=== PATIENT | female | born 2000 | race Caucasian/White ===

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

== ENCOUNTER → 2019-01-19 09:29 | Outpatient (CLI) | payer SELFPAY ==
[2019-01-19 10:42] LABS: HCG,Quantitative 2 mIU/mL
== END ==
LOC: UTC.OUT 09:31 → LAB 09:32
PROVIDERS: Visit Provider Nurse Practitioner Family
DX: N91.2 Amenorrhea, unspecified (principal)
CPT/HCPCS: 36415; 84702

== ENCOUNTER → 2019-01-21 13:47 | Outpatient (CLI) | payer SELFPAY ==
[2019-01-21 14:34] LABS: HCG,Quantitative 1 mIU/mL
== END ==
PROVIDERS: Visit Provider Nurse Practitioner Family
DX: Z32.00 Encounter for pregnancy test, result unknown (principal)
CPT/HCPCS: 36415; 84702

== ENCOUNTER 2020-09-10 20:54 | Emergency (ER) | payer BC, SELFPAY ==
[2020-09-10 20:55] VITALS: BP 103/84; PULSE 119; RESP 16; TEMP 36.5; O2SAT 98; BMI 15.6
[2020-09-10 21:13] VITALS: BP 112/76; PULSE 104; RESP 16
--- NOTE | 2020-09-10 21:21 | PC.NURSE ---
spoke with Kalli from pharmacy and she states ok to give phengran, pepcid , reglan
[2020-09-10 21:24] LABS: Basophils % 0.2 % (0.1-2.0); Eosinophils # 0.2 K/mm3 (0.0-0.4); Eosinophils % 0.9 % (0.1-12.0); Hematocrit 43.4 % (37.0-47.0); Hemoglobin 13.9 g/dL (12.2-16.2); Lymphocytes % 5.1 % (10-50); Mean Corpuscular HGB Conc 32.1 g/dL (31.8-35.4); Mean Corpuscular Hemoglobin 28.5 pg (27.0-31.2); Mean Corpuscular Volume 88.7 fl (81-99); Mean Platelet Volume 7.5 fl (7.4-10.4); Monocytes # 0.5 K/mm3 (0.1-1.0); Monocytes % 2.6 % (1.7-9.3); Neutrophils % 91.1 % (37.0-80.0); Platelet Count 371 K/mm3 (142-424); Red Blood Count 4.89 M/mm3 (4.20-5.40); Red Cell Distribution Width 13.2 % (11.5-17.5); White Blood Count 18.6 K/mm3 (4.8-10.8)
[2020-09-10 21:29] LABS: MANUAL DIFFERENTIAL MANUAL DIFFERENTIAL (MANUAL DIFF)
[2020-09-10 22:00] VITALS: BP 114/75; PULSE 104; RESP 16
[2020-09-10 22:04] LABS: Erythrocyte Sedimentation Rate 4 mm/hr (0-20)
[2020-09-10 22:05] LABS: Lymphocytes % 7 % (10-50); Monocytes % 1 % (2-9); Neutrophils % 86 % (42-76); Platelet Estimate Normal; RBC Morphology Normal; Total Cells Counted 100
--- NOTE | 2020-09-10 22:07 | PC.NURSE ---
spoke with sabrina from pharmacy ol morphine dosage
--- NOTE | 2020-09-10 22:09 | HMH.EDPREG ---
ED Disposition Clinical Impression: Gastroenteritis due to norovirus Qualifiers: Weeks of gestation: 13 weeks Qualified Code(s): Z3A.13 - 13 weeks gestation of Disposition: Home, Self-Care Condition on Discharge: Good Instructions: DI for Acute Abdominal Pain Additional Instructions: fluids and call ob this am and use meds as needed Prescriptions: ondansetron HCL [Zofran 4mg Tab] 4 mg PO TID PRN #21 tab PRN Reason: Nausea And Vomiting Transmission Status: Pending to [facility] #[id number] Referrals: Manuel Segundo MD [Primary Care Provider] - - Critical Care Critical Care Time: No Attestation: On 09/10/20, the high probability of a clinically significant, sudden or life threatening deterioration of the following system(s) required my full and direct attention, intervention and personal management. The time I documented below is in addition to time spent performing reported procedures but includes the following listed in this critical care notation. Medical Decision Making - Medical Records Medical records reviewed: Yes: I reviewed the patient's medical records. - Byron Inquiry Pt receiving controlled substance: No Vital Signs: 09/10/20 20:55 09/10/20 21:13 09/10/20 22:00 Temperature 97.7 F Temperature Source Oral Pulse Rate 104 H 104 H Pulse Rate [Right] 119 H Respiratory Rate 16 16 16 Blood Pressure 112/76 114/75 Blood Pressure [Right Arm] 103/84 L Blood Pressure Mean [Right Arm] 90 02 Sat by Pulse Oximetry 98 09/10/20 22:30 09/10/20 23:00 Temperature Temperature Source Pulse Rate 84 89 Pulse Rate [Right] Respiratory Rate 14 16 Blood Pressure 122/70 118/69 Blood Pressure [Right Arm] Blood Pressure Mean [Right Arm] 02 Sat by Pulse Oximetry - Lab Data Lab results reviewed: Yes: I reviewed the patient's lab results. Lab Results 09/10/20 21:10: WBC 18.6 H, RBC 4.89, Hgb 13.9, Hct 43.4, MCV 88.7, MCH 28.5, MCHC 32.1, RDW 13.2, Plt Count 371, MPV 7.5, Neut % (Auto) 91.1 H, Lymph % (Auto) 5.1 L, [place] % (Auto) 2.6, Eos % (Auto) 0.9, Baso % (Auto) 0.2, Neut # (Auto) 17.0 H, Lymph # (Auto) 1.0, [place] # (Auto) 0.5, Eos # (Auto) 0.2, Baso # (Auto) 0.0, Total Counted 100, Neutrophils % (Manual) 86 H, Band Neutrophils % 6.0, Lymphocytes % (Manual) 7 L, Monocytes % (Manual) 1 L, Platelet Estimate Normal, RBC Morphology Normal, ESR 4 09/10/20 21:10: Sodium 135 L, Potassium 3.9, Chloride 104, Carbon Dioxide 19 L, Anion Gap 15.9 H, BUN 10, Creatinine 0.50 L, Estimated Creat Clear 134, Estimated GFR 154, Est GFR ( Amer) 187, Glucose 91, Calcium 9.7, Total Bilirubin 0.7, AST 34, ALT 14, Alkaline Phosphatase 65, C-Reactive Protein 1.3, Total Protein 8.3 H, Albumin 4.8, Globulin 3.5 H, Albumin/Globulin Ratio 1.4, Amylase 52, Lipase 21 L, Procalcitonin 0.044, HCG, Quant [id number] H 09/10/20 22:00: Lactate 0.9 09/10/20 22:19: Urine Color Yellow, Urine Appearance Sl cloudy, Urine pH 6.0, Ur Specific [place] >= 1.030, Urine Protein Trace, Urine Glucose (UA) Negative, Urine Ketones 3+, Urine Blood 1+, Urine Nitrate Negative, Urine Bilirubin Negative, Urine Urobilinogen 0.2, Ur Leukocyte Esterase Trace, Urine RBC 5-10, Urine WBC 3-5, Ur Squamous Epith Cells 20-50, Amorphous Sediment Trace, Urine Mucus 4+ 09/10/20 22:19: Stl Aeromonas (PCR) Not detected, Stl C. cayetanensis PCR Not detected, Stool Rotavirus (PCR) Not detected, Stl Adenov F 40/41 PCR Not detected, Stool Astrovirus (PCR) Not detected, Stool Campylobacter PCR Not detected, Stl C.difficile Tox PCR Not detected, Stool Cryptosporidium PCR Not detected, Stl E.coli Shiga Tox PCR Not detected, Stool E coli O157 PCR Not detected, Stl Enterotoxigenic E PCR Not detected, Stool EPEC (PCR) Not detected, Stool EAEC (PCR) Not detected, Stl E. histolytica PCR Not detected, Stool Giardia Lamblia PCR Not detected, Stool Salmonella PCR Not detected, Stool Sapovirus (PCR) Not detected, Stl P. shigelloides PCR Not detected, Stl Tiffanie
[2020-09-10 22:10] LABS: Alanine Aminotransferase 14 U/L (12-78); Albumin Level 4.8 g/dl (3.5-5.0); Albumin/Globulin Ratio 1.4 (1.1-1.8); Alkaline Phosphatase 65 U/L (38-126); Amylase 52 U/L (30-110); Anion Gap 15.9 mEq/L (5-15); Aspartate Amino Transferase 34 U/L (14-36); Bilirubin,Total 0.7 mg/dl (0.2-1.3); Blood Urea Nitrogen 10 mg/dl (7-17); Calcium 9.7 mg/dl (8.4-10.2); Carbon Dioxide 19 mmol/L (22.0-30.0); Chloride 104 mmol/L (98-107); Creatinine Clearance Estimated 134 mL/min (50-200); Estimated Glomerular Filt Rate 154 ml/min (>60); GFR (African American) 187 ML/MIN (>60); Globulin 3.5 g/dL (1.3-3.2); Glucose 91 mg/dl (74-100); Lipase 21 U/L (23-300); Potassium 3.9 mmoL/L (3.5-5.1); Sodium 135 mmol/L (136-145); Total Protein,Serum 8.3 g/dl (6.3-8.2)
[2020-09-10 22:15] LABS: C-Reactive Protein 1.3 mg/L (0-4)
[2020-09-10 22:21] LABS: Lactic Acid 0.9 mmol/L (0.7-2.1)
--- NOTE | 2020-09-10 22:22 | PC.NURSE ---
heart tone 155
[2020-09-10 22:25] LABS: Adenovirus F 40/41, stool Not Detected (NotDetected); Astrovirus Not Detected (NotDetected); Campylobacter Not Detected (NotDetected); Clostridium Difficile A/B, PCR Not Detected (NotDetected); Cryptosporidium Not Detected (NotDetected); Cyclospora Cayetanesis Not Detected (NotDetected); Entamoeba histolytica Not Detected (NotDetected); Enteroaggregative E coli Not Detected (NotDetected); Enteropathogenic E coli Not Detected (NotDetected); Enterotoxigenic E coli Not Detected (NotDetected); Giardia lamblia Not Detected (NotDetected); Microscopic, Urine URINE MICROSCOPIC (MICROSCOPIC); Plesimonas Shigalloides, PCR Not Detected (NotDetected); Rotavirus A Not Detected (NotDetected); Salmonella, PCR Not Detected (NotDetected); Sapovirus Not Detected (NotDetected); Shiga-like toxin E coli Not Detected (NotDetected); Shigella Enterovasive E coli Not Detected (NotDetected); Vibrio Cholerae Not Detected (NotDetected); Vibrio, PCR Not Detected (NotDetected); Yersinia Entercolitica, PCR Not Detected (NotDetected)
[2020-09-10 22:30] VITALS: BP 122/70; PULSE 84; RESP 14
[2020-09-10 22:30] LABS: Procalcitonin 0.044 ng/mL (0.0-2.0)
[2020-09-10 22:35] LABS: Appearance,Urine SL CLOUDY (Clear); Blood, Urine 1+ (Negative); Color,Urine YELLOW (Yellow); Glucose,Urine (UA) Negative (Negative); Ketones,Urine 3+ (Negative); Leukocyte Esterase,Urine TRACE (Negative); Nitrate,Urine Negative (Negative); Protein,Urine TRACE (Negative); Specific Gravity, Urine >= 1.030 (1.005-1.030); Urobilinogen,Urine 0.2 EU/dl (0.2)
[2020-09-10 22:40] LABS: Bilirubin,Urine Negative (Negative)
[2020-09-10 22:41] LABS: Amorphous Sediment,Urine Trace /lpf; Mucus,Urine 4+ /lpf; Squamous Epithelial Cell,Urine 20-50 #/hpf (0-5)
[2020-09-10 23:00] VITALS: BP 118/69; PULSE 89; RESP 16
[2020-09-11 00:30] LABS: Norovirus Detected (NotDetected)
[2020-09-11 01:03] VITALS: BP 112/74; PULSE 84; RESP 14; TEMP 37.1; O2SAT 97
== END 2020-09-11 01:04 | disposition home or self-care (01) ==
PROVIDERS: Emergency Provider Emergency Medicine; PCP Family Medicine
DX: A08.11 Acute gastroenteropathy due to Norwalk agent (principal); Z3A.13 13 weeks gestation of pregnancy
CPT/HCPCS: 80053; 81001; 82150; 83605; 83690; 84145; 84702; 85007; 85025; 85651; 86140; 87040; 87077; 87186; 87506; 96366; 96375; 99283

== ENCOUNTER → 2020-12-22 09:19 | Outpatient (CLI) | payer OTHER, SELFPAY | PROVIDERS: PCP Family Medicine; Visit Provider Nurse Practitioner Family | DX: Z20.822 Contact with and (suspected) exposure to COVID-19 (principal) | CPT/HCPCS: U0003 ==

== ENCOUNTER → 2021-05-18 15:18 | Outpatient (CLI) | payer OTHER, SELFPAY ==
[2021-05-18 16:33] LABS: Basophils # 0.1 K/mm3 (0-0.2); Basophils % 1.5 % (0.1-2.0); Eosinophils # 0.1 K/mm3 (0.0-0.4); Lymphocytes # 3.7 K/mm3 (0.7-4.5); Lymphocytes % 59.9 % (10-50); Mean Corpuscular HGB Conc 32.5 g/dL (31.8-35.4); Mean Corpuscular Hemoglobin 29.1 pg (27.0-31.2); Mean Corpuscular Volume 89.5 fl (81-99); Monocytes # 0.3 K/mm3 (0.1-1.0); Monocytes % 4.5 % (1.7-9.3); Platelet Count 441 K/mm3 (142-424); Red Blood Count 4.47 M/mm3 (4.20-5.40); Red Cell Distribution Width 15.7 % (11.5-17.5); White Blood Count 6.1 K/mm3 (4.8-10.8)
[2021-05-18 16:34] LABS: Alanine Aminotransferase 18 U/L (12-78); Albumin Level 4.8 g/dl (3.5-5.0); Albumin/Globulin Ratio 1.7 (1.1-1.8); Alkaline Phosphatase 71 U/L (38-126); Aspartate Amino Transferase 29 U/L (14-36); Bilirubin,Total 0.3 mg/dl (0.2-1.3); Blood Urea Nitrogen 13 mg/dl (7-17); Calcium 9.7 mg/dl (8.4-10.2); Carbon Dioxide 26 mmol/L (22.0-30.0); Chloride 106 mmol/L (98-107); Estimated Glomerular Filt Rate 125 ml/min (>60); GFR (African American) 151 ML/MIN (>60); Globulin 2.9 g/dL (1.3-3.2); Glucose 89 mg/dl (74-100); Iron 82 ug/dL (37-170); Sodium 138 mmol/L (136-145); Total Protein,Serum 7.7 g/dl (6.3-8.2)
[2021-05-18 16:44] LABS: Total Iron Binding Capacity 323 ug/dL (265-497)
[2021-05-18 16:57] LABS: MANUAL DIFFERENTIAL MANUAL DIFFERENTIAL (MANUAL DIFF)
[2021-05-18 17:06] LABS: Thyroid Stimulating Hormone 0.58 uIU/mL (0.465-4.68)
[2021-05-18 17:10] LABS: Ferritin 26.8 ng/ml (6.24-137)
[2021-05-18 17:52] LABS: Eosinophils % 1 % (0-3); Lymphocytes % 70 % (10-50); Monocytes % 2 % (2-9); Neutrophils % 27 % (42-76); Platelet Estimate Slight Increase; RBC Morphology Normal; Total Cells Counted 100
[2021-05-20 15:22] LABS: Peripheral Smear Review Scanned Result
[2021-05-21 19:20] LABS: Antinuclear Antibodies, IFA Positive (.)
== END ==
PROVIDERS: Visit Provider Nurse Practitioner Family
DX: D50.9 Iron deficiency anemia, unspecified (principal); R23.8 Other skin changes
CPT/HCPCS: 36415; 80053; 82728; 83540; 83550; 84443; 85007; 85025; 86038

== ENCOUNTER 2021-09-03 08:24 | Emergency (ER) | payer OTHER, SELFPAY ==
[2021-09-03 08:32] VITALS: BP 110/74; PULSE 113; RESP 17; TEMP 36.9; O2SAT 97; BMI 16.9
--- NOTE | 2021-09-03 08:36 | HMH.EDNVD ---
ED Disposition Clinical Impression: Gastroenteritis Disposition: Home, Self-Care Condition on Discharge: Good Instructions: Viral Gastroenteritis Additional Instructions: Please follow up with your primary care physician in 2-3 days for further management. Please use the zofran every 8 hours for 2 days and then as needed. Please return if unable to eat and drink, difficulty breathing, chest pain, dizziness, lethargy or any other concerns. Prescriptions: Ondansetron [Zofran 4mg ODT] 4 mg PO TIDP PRN #20 tab PRN Reason: Nausea Transmission Status: Pending to [facility] #[id number] Referrals: Manuel Segundo MD [Primary Care Provider] - Time of Disposition: 09:35 - Critical Care Critical Care Time: No Attestation: On 09/03/21, the high probability of a clinically significant, sudden or life threatening deterioration of the following system(s) required my full and direct attention, intervention and personal management. The time I documented below is in addition to time spent performing reported procedures but includes the following listed in this critical care notation. Medical Decision Making - Medical Records Medical records reviewed: Yes: I reviewed the patient's medical records. - Byron Inquiry Pt receiving controlled substance: No Vital Signs: 09/03/21 08:32 09/03/21 09:00 Temperature 98.4 F Temperature Source Oral Pulse Rate 80 Pulse Rate [Left Radial] 113 H Respiratory Rate 17 20 Blood Pressure 109/78 L Blood Pressure [Right Arm] 110/74 Blood Pressure Mean 83 Blood Pressure Mean [Right Arm] 86 02 Sat by Pulse Oximetry 97 96 Oxygen Delivery Method Room Air - Lab Data Lab results reviewed: Yes: I reviewed the patient's lab results. Lab Results 09/03/21 08:35: WBC 8.4, RBC 4.69, Hgb 14.4, Hct 43.6, MCV 93.1, MCH 30.7, MCHC 33.0, RDW 12.9, Plt Count 367, MPV 7.6, Neut % (Auto) 80.5 H, Lymph % (Auto) 13.6, [place] % (Auto) 3.6, Eos % (Auto) 1.6, Baso % (Auto) 0.7, Neut # (Auto) 6.7, Lymph # (Auto) 1.1, [place] # (Auto) 0.3, Eos # (Auto) 0.1, Baso # (Auto) 0.1 09/03/21 08:35: Sodium 138, Potassium 3.6, Chloride 105, Carbon Dioxide 26, Anion Gap 10.6, BUN 21 H, Creatinine 0.60, Estimated Creat Clear 113, Estimated GFR 124, Est GFR ( Amer) 150, Glucose 108 H, Calcium 8.6, Total Bilirubin 0.7, AST 23, ALT 18, Alkaline Phosphatase 79, Total Protein 7.4, Albumin 4.6, Globulin 2.8, Albumin/Globulin Ratio 1.6 09/03/21 08:35: Serum HCG, Qual Negative Result diagrams: 09/03/21 08:35 09/03/21 08:35 Orders (Tests/Meds): ED MEDICATIONS Generic Name Dose Route Start Last Admin Trade Name Freq PRN Reason Stop Dose Admin Lactated Ringer's 1,000 mls @ 999 mls/hr 09/03/21 08:45 09/03/21 09:09 Lactated Ringer's 1000 Ml Bag IV 09/03/21 09:45 999 mls/hr .Q1H1M PHILIP Administration Discontinued Medications Generic Name Dose Route Start Last Admin Trade Name Freq PRN Reason Stop Dose Admin Ondansetron HCl 4 mg 09/03/21 08:35 09/03/21 09:08 Ondansetron 4mg/2ml Vial IV 09/03/21 08:36 4 mg ONCE ONE Administration Medical Decision Narrative: Mrs. Ritter is a 21-year-old female with past medical history for lupus who presents to the emergency department with N/V and nonbloody diarrhea. Patient is afebrile and hemodynamically stable on arrival. Nontoxic-appearing. Physical exam benign abdomen is non tender to palpation. Patient has no clinical signs of dehydration. Moist mucous membranes, cap refill less than 2 and good skin turgor. Patients symptoms are consistent with viral mediated process however given hx of lupus and significant volume loss will obtain test and basic labs. Basic labs are non actionable with no evidence of electrolyte disturbance and no WBC. neg. Patient is given bolus and zofran for symptomatic relief and po challenged successfully. Patient is discharged in stable condition and informed to fu w/ pcp in 2-3 days. Kadie
[2021-09-03 08:46] LABS: Basophils # 0.1 K/mm3 (0-0.2); Basophils % 0.7 % (0.1-2.0); Eosinophils # 0.1 K/mm3 (0.0-0.4); Eosinophils % 1.6 % (0.1-12.0); Hematocrit 43.6 % (37.0-47.0); Hemoglobin 14.4 g/dL (12.2-16.2); Lymphocytes # 1.1 K/mm3 (0.7-4.5); Lymphocytes % 13.6 % (10-50); Mean Corpuscular Hemoglobin 30.7 pg (27.0-31.2); Mean Corpuscular Volume 93.1 fl (81-99); Mean Platelet Volume 7.6 fl (7.4-10.4); Monocytes # 0.3 K/mm3 (0.1-1.0); Monocytes % 3.6 % (1.7-9.3); Neutrophils # 6.7 K/mm3 (1.8-7.8); Neutrophils % 80.5 % (37.0-80.0); Platelet Count 367 K/mm3 (142-424); Red Blood Count 4.69 M/mm3 (4.20-5.40); Red Cell Distribution Width 12.9 % (11.5-17.5); White Blood Count 8.4 K/mm3 (4.8-10.8)
[2021-09-03 08:54] LABS: HCG Qualitative, Serum Negative (Negative)
[2021-09-03 08:59] LABS: Alanine Aminotransferase 18 U/L (12-78); Albumin Level 4.6 g/dl (3.5-5.0); Albumin/Globulin Ratio 1.6 (1.1-1.8); Alkaline Phosphatase 79 U/L (38-126); Anion Gap 10.6 mEq/L (5-15); Aspartate Amino Transferase 23 U/L (14-36); Bilirubin,Total 0.7 mg/dl (0.2-1.3); Blood Urea Nitrogen 21 mg/dl (7-17); Calcium 8.6 mg/dl (8.4-10.2); Carbon Dioxide 26 mmol/L (22.0-30.0); Chloride 105 mmol/L (98-107); Creatinine Clearance Estimated 113 mL/min (50-200); Estimated Glomerular Filt Rate 124 ml/min (>60); GFR (African American) 150 ML/MIN (>60); Globulin 2.8 g/dL (1.3-3.2); Glucose 108 mg/dl (74-100); Potassium 3.6 mmoL/L (3.5-5.1); Sodium 138 mmol/L (136-145); Total Protein,Serum 7.4 g/dl (6.3-8.2)
[2021-09-03 09:00] VITALS: BP 109/78; PULSE 80; RESP 20; O2SAT 96
[2021-09-03 10:49] VITALS: BP 122/75; PULSE 89; RESP 20; TEMP 36.9; O2SAT 100
== END 2021-09-03 10:50 | disposition home or self-care (01) ==
PROVIDERS: Emergency Provider Student in an Organized Health Care Education/Training Program; PCP Family Medicine
DX: A08.4 Viral intestinal infection, unspecified (principal); M32.9 Systemic lupus erythematosus, unspecified; G43.909 Migraine, unspecified, not intractable, without status migrainosus; G40.909 Epilepsy, unspecified, not intractable, without status epilepticus; Z79.51 Long term (current) use of inhaled steroids; Z79.52 Long term (current) use of systemic steroids; Z79.899 Other long term (current) drug therapy; Z82.49 Family history of ischemic heart disease and other diseases of the circulatory system; Z82.5 Family history of asthma and other chronic lower respiratory diseases
CPT/HCPCS: 80053; 84703; 85025; 96361; 96365; 96374; 96375; 99284; J2405

== ENCOUNTER 2022-01-28 15:52 | Emergency (ER) | payer SELFPAY ==
[2022-01-28 16:20] VITALS: BP 104/68; PULSE 77; RESP 18; TEMP 36.9; O2SAT 100; BMI 14.8
--- NOTE | 2022-01-28 16:31 | XR_ITS ---
PROCEDURE INFORMATION: Exam: XR Lumbosacral Spine Exam date and time: 01/28/2022 4:44 PM Age: 21 years old Clinical indication: Low back pain TECHNIQUE: Imaging protocol: Radiologic exam of the lumbosacral spine. Views: 2 or 3 views. COMPARISON: CR [id number] XR lumbar spine min 4V 07/16/2017 4:01 PM FINDINGS: Bones/joints: Subtle irregularity of the left L5 pars interarticularis. Findings compatible with unilateral pars defect. Findings in retrospect stable. No evidence of associated anterolisthesis of L5 with respect S1. Soft tissues: Unremarkable. IMPRESSION: Unilateral left L5 pars defect.
--- NOTE | 2022-01-28 17:15 | HMH.EDUTC ---
[facility] [place] Impression: Low [place] pain Qualifiers: Chronicity: acute Back pain laterality: right Sciatica presence: with sciatica Sciatica laterality: sciatica of right side Qualified Code(s): M54.41 - Lumbago with sciatica, right side Disposition: Home, Self-Care Condition on Discharge: Good Instructions: Low Back Pain, DI for Low Back Pain Additional Instructions: Go home and rest. It would be best if you rested tomorrow too. No heavy lifting. No twisting. Take the oral medications as directed. The muscle relaxer (cyclobenzaprine--Flexeril) will make you drowsy, so don't drive or operate heavy machinery after taking it. Don't start the oral steroids (medrol dose pack) until tomorrow, since you had the shots in here today. Follow up with your regular doctor. GO TO THE ER FOR ANY WORSENING SYMPTOMS OR CONCERN, ESPECIALLY BOWEL OR BLADDER ISSUES, SADDLE AREA NUMBNESS, FEVER, ETC Prescriptions: Cyclobenzaprine HCl [Cyclobenzaprine 10mg Tab] 10 mg PO BIDP PRN #20 tab PRN Reason: Muscle Spasm Transmission Status: Received by [facility] #[id number] methylPREDNISolone [Medrol] 4 mg PO DIRECTED 6 Days #21 packet Transmission Status: Received by [facility] #[id number] Referrals: Kate Pascal APRN [Primary Care Provider] - Time of Disposition: 17:45 Medical Decision Making - Medical Records Medical records reviewed: No: I reviewed the patient's medical records. - Byron Inquiry Pt receiving controlled substance: No Vital Signs: 01/28/22 16:20 01/28/22 17:32 Temperature 98.4 F 98.4 F Temperature Source Oral Pulse Rate 77 Pulse Rate [Right Brachial] 77 Respiratory Rate 18 18 Blood Pressure 104/68 L Blood Pressure [Right Arm] 104/68 L Blood Pressure Mean [Right Arm] 80 Blood Pressure Source [Right Arm] Automatic Cuff Blood Pressure Position [Right Arm] Sitting 02 Sat by Pulse Oximetry 100 Oxygen Delivery Method Room Air - Lab Data Lab Results 01/28/22 17:33: [facility] Negative Orders (Tests/Meds): ED MEDICATIONS Discontinued Medications Generic Name Dose Route Start Last Admin Trade Name Freq PRN Reason Stop Dose Admin Ketorolac Tromethamine 60 mg 01/28/22 17:18 01/28/22 17:30 Ketorolac 60mg/2ml Vial IM 01/28/22 17:19 60 mg ONCE ONE Administration Methylprednisolone Sodium Succinate 62.5 mg 01/28/22 17:18 01/28/22 17:30 Methylprednisolone Sod Succ 125mg Vial IM 01/28/22 17:19 62.5 mg ONCE ONE Administration [facility] [place] - General Stated complaint: ao 01/27@1000@home injured back Time Seen by Provider: 01/28/22 17:15 Mode of Arrival: Ambulatory Source of Information: Patient Limitations: No Limitations Description of Symptoms (Recalled from Triage Doc. by RN): PATIENT C/O LOWER BACK PAIN. SHE STATES HE WAS PLAYING WITH HER KIDS YESTERDAY WHEN HER BACK STARTED HURTING AND IT HAS BEEN GETTING WORSE HEENT Symptoms (Recalled from RN notes): No Resp Symptoms (Recalled from RN notes): No Skin Symptoms (Recalled from RN notes): No MS Symptoms (Recalled from RN notes): Yes Functional Status (Recalled from RN notes): WNL - History of Present Illness Provider Complaint: She states that for the past 2 days she has had low back pain. She denies any know injury, but right before her symptoms began she as swing her child when she felt something pull in her lower back. She denies any urinary complaints. She denies any bowel issues or saddle area numbness. - Related Data Previous Rx's Medication Instructions Recorded Cyclobenzaprine HCl 10 mg PO BIDP PRN #20 tab 01/28/22 [Cyclobenzaprine 10mg Tab] methylPREDNISolone [Medrol] 4 mg PO DIRECTED 6 Days #21 01/28/22 packet Allergies Allergy/AdvReac Type Severity Reaction Status Date / Time No Known Allergies Allergy Verified 06/14/17 17:19 - Worker's Comp Is this a Worker's Comp case?: No [facility] History - Hepatitis A Screen Attestatio
[2022-01-28 17:32] VITALS: BP 104/68; PULSE 77; RESP 18; TEMP 36.9; O2SAT 100
[2022-01-28 17:33] LABS: UTC Pregnancy Test, Urine Negative (Negative)
== END 2022-01-28 17:54 | disposition home or self-care (01) ==
PROVIDERS: Emergency Provider Nurse Practitioner Family; PCP Nurse Practitioner Family
DX: M54.41 Lumbago with sciatica, right side (principal)
CPT/HCPCS: 72100; 81025; 99212; G0463

== ENCOUNTER 2022-01-29 08:20 | Emergency (ER) | payer BC, SELFPAY ==
[2022-01-29] VITALS (11 sets, daily range): BP systolic 97–109; BP diastolic 55–79; PULSE 60–61; RESP 16–18; TEMP 37; O2SAT 96–98; BMI 14.8
[2022-01-29 09:25] LABS: Basophils # 0.1 K/mm3 (0-0.2); Basophils % 1.1 % (0.1-2.0); Chloride 109 mmol/L (98-107); Eosinophils # 0.1 K/mm3 (0.0-0.4); Eosinophils % 0.7 % (0.1-12.0); Hematocrit 44.2 % (37.0-47.0); Hemoglobin 13.4 g/dL (12.2-16.2); Lymphocytes % 9.5 % (10-50); Mean Corpuscular HGB Conc 30.4 g/dL (31.8-35.4); Mean Corpuscular Hemoglobin 29.6 pg (27.0-31.2); Mean Corpuscular Volume 97.5 fl (81-99); Mean Platelet Volume 7.8 fl (7.4-10.4); Monocytes # 0.3 K/mm3 (0.1-1.0); Monocytes % 2.9 % (1.7-9.3); Neutrophils % 85.8 % (37.0-80.0); Platelet Count 551 K/mm3 (142-424); Potassium 4.1 mmoL/L (3.5-5.1); Red Blood Count 4.53 M/mm3 (4.20-5.40); Red Cell Distribution Width 13.1 % (11.5-17.5); Sodium 141 mmol/L (136-145); White Blood Count 10.5 K/mm3 (4.8-10.8)
[2022-01-29 09:27] LABS: Blood Urea Nitrogen 22 mg/dl (7-17); Creatinine Clearance Estimated 125 mL/min (50-200); Estimated Glomerular Filt Rate 153 ml/min (>60); GFR (African American) 185 ML/MIN (>60); MANUAL DIFFERENTIAL MANUAL DIFFERENTIAL (MANUAL DIFF)
[2022-01-29 09:28] LABS: Alanine Aminotransferase 19 U/L (12-78); Albumin Level 4.8 g/dl (3.5-5.0); Albumin/Globulin Ratio 1.5 (1.1-1.8); Alkaline Phosphatase 63 U/L (38-126); Anion Gap 11.1 mEq/L (5-15); Aspartate Amino Transferase 31 U/L (14-36); Bilirubin,Total 0.4 mg/dl (0.2-1.3); Carbon Dioxide 25 mmol/L (22.0-30.0); Globulin 3.1 g/dL (1.3-3.2); Total Protein,Serum 7.9 g/dl (6.3-8.2)
[2022-01-29 09:29] LABS: Calcium 8.7 mg/dl (8.4-10.2); Glucose 118 mg/dl (74-100)
[2022-01-29 09:47] LABS: C-Reactive Protein < 0.3 mg/L (0-4)
[2022-01-29 09:55] LABS: Anisocytosis 1+; Hypochromasia 2+; Lymphocytes % 9 % (10-50); Monocytes % 3 % (2-9); Neutrophils % 87 % (42-76); Platelet Estimate Moderate Increase; Total Cells Counted 100
[2022-01-29 09:56] LABS: Erythrocyte Sedimentation Rate 10 mm/hr (0-20)
--- NOTE | 2022-01-29 11:16 | PC.NURSE ---
family at bedside. updated
--- NOTE | 2022-01-29 11:36 | HMH.EDBACK ---
ED Disposition Clinical Impression: Lumbar strain Qualifiers: Encounter type: initial encounter Qualified Code(s): S39.012A - Strain of muscle, fascia and tendon of lower back, initial encounter Disposition: Home, Self-Care Condition on Discharge: Good Instructions: DI for Low Back Pain Additional Instructions: Up with your primary care provider if symptoms do not improve for consideration of outpatient physical therapy and/or MRI of the lumbar spine. Work through and including February 01. Referrals: Kate Pascal APRN [Primary Care Provider] - Forms: Work/School Release - Critical Care Critical Care Time: No Attestation: On 01/29/22, the high probability of a clinically significant, sudden or life threatening deterioration of the following system(s) required my full and direct attention, intervention and personal management. The time I documented below is in addition to time spent performing reported procedures but includes the following listed in this critical care notation. Medical Decision Making - Medical Records Medical records reviewed: Yes: I reviewed the patient's medical records. - Byron Inquiry Pt receiving controlled substance: No Vital Signs: 01/29/22 08:21 01/29/22 08:30 01/29/22 08:50 Temperature 98.6 F Temperature Source Oral Pulse Rate 60 Pulse Rate [Radial] 60 Respiratory Rate 16 16 Blood Pressure 97/55 L 106/63 L Blood Pressure [Right Arm] 97/55 L Blood Pressure Mean 68 Blood Pressure Mean [Right Arm] 69 Blood Pressure Position [Right Arm] Sitting 02 Sat by Pulse Oximetry 98 96 Oxygen Delivery Method Room Air 01/29/22 09:02 01/29/22 09:30 01/29/22 10:00 Temperature Temperature Source Pulse Rate 60 Pulse Rate [Radial] Respiratory Rate 16 Blood Pressure 106/63 L 106/64 L 106/69 L Blood Pressure [Right Arm] Blood Pressure Mean 77 77 83 Blood Pressure Mean [Right Arm] Blood Pressure Position [Right Arm] 02 Sat by Pulse Oximetry 96 Oxygen Delivery Method 01/29/22 10:30 01/29/22 11:00 01/29/22 11:30 Temperature Temperature Source Pulse Rate Pulse Rate [Radial] Respiratory Rate Blood Pressure 104/63 L 101/58 L 109/64 L Blood Pressure [Right Arm] Blood Pressure Mean 76 69 78 Blood Pressure Mean [Right Arm] Blood Pressure Position [Right Arm] 02 Sat by Pulse Oximetry Oxygen Delivery Method 01/29/22 12:00 01/29/22 12:17 Temperature 98.6 F Temperature Source Pulse Rate 61 Pulse Rate [Radial] Respiratory Rate 18 Blood Pressure 102/59 L 102/79 L Blood Pressure [Right Arm] Blood Pressure Mean 70 Blood Pressure Mean [Right Arm] Blood Pressure Position [Right Arm] 02 Sat by Pulse Oximetry Oxygen Delivery Method Room Air - Lab Data Lab results reviewed: Yes: I reviewed the patient's lab results. Lab Results 01/29/22 09:05: WBC 10.5, RBC 4.53, Hgb 13.4, Hct 44.2, MCV 97.5, MCH 29.6, MCHC 30.4 L, RDW 13.1, Plt Count 551 H, MPV 7.8, Neut % (Auto) 85.8 H, Lymph % (Auto) 9.5 L, [place] % (Auto) 2.9, Eos % (Auto) 0.7, Baso % (Auto) 1.1, Neut # (Auto) 9.0 H, Lymph # (Auto) 1.0, [place] # (Auto) 0.3, Eos # (Auto) 0.1, Baso # (Auto) 0.1, Total Counted 100, Neutrophils % (Manual) 87 H, Band Neutrophils % 1.0, Lymphocytes % (Manual) 9 L, Monocytes % (Manual) 3, Platelet Estimate Moderate increase, Hypochromasia 2+, Anisocytosis 1+, ESR 10 01/29/22 09:05: Sodium 141, Potassium 4.1, Chloride 109 H, Carbon Dioxide 25, Anion Gap 11.1, BUN 22 H, Creatinine 0.50 L, Estimated Creat Clear 125, Estimated GFR 153, Est GFR ( Amer) 185, Glucose 118 H, Calcium 8.7, Total Bilirubin 0.4, AST 31, ALT 19, Alkaline Phosphatase 63, C-Reactive Protein < 0.3, Total Protein 7.9, Albumin 4.8, Globulin 3.1, Albumin/Globulin Ratio 1.5 Result diagrams: 01/29/22 09:05 01/29/22 09:05 Orders (Tests/Meds): ED MEDICATIONS Discontinued Medications Generic Name Dose Route Start Last Admin Trade Name
== END 2022-01-29 12:19 | disposition home or self-care (01) ==
PROVIDERS: Emergency Provider Emergency Medicine; PCP Nurse Practitioner Family
DX: S39.012A Strain of muscle, fascia and tendon of lower back, initial encounter (principal)
CPT/HCPCS: 80053; 85007; 85025; 85651; 86140; 96374; 96375; 99284

== ENCOUNTER 2022-06-11 14:21 | Emergency (ER) | payer SELFPAY ==
[2022-06-11 15:05] VITALS: BP 119/79; PULSE 78; RESP 18; TEMP 37; O2SAT 98; BMI 16.2
--- NOTE | 2022-06-11 15:49 | EXP.UTC ---
Discharge Plan Disposition Patient Disposition: Home, Self-Care Condition: Good Prescriptions Prescriptions: New methylprednisolone [Medrol (Indra)] 4 mg tablets,dose pack See Rx Instructions .Route .COMPLEX 6 Days Qty: 21 0RF Rx Instructions: taper pack; No Action meloxicam 7.5 mg Tablet 7.5 mg PO DAILY hydroxychloroquine 200 mg Tablet 200 mg PO DAILY duloxetine 60 mg Capsule,Delayed Release(Dr/Ec) 60 mg PO DAILY Referrals Follow up/Referrals: Kate Pascal APRN [Primary Care Provider] - See instructions Activity Restrictions/Add. Instructions Additional Instructions/Restrictions: *Ibuprofen tiffani 6 hours with meal as needed for pain/inflammation *Remember you had a Toradol shot in the clinic today, which is similar to Motrin *Not additional anti-inflammatory like motrin, aleve, advil with the above amount of ibuprofen. You can still take Tylenol every 4 hours as needed if you need something else for pain *Ice 20 minutes every 2 hours for the first 48 hours after the initial injury followed by moist heat every 20 minutes 3-4 times a day to affected area *Muscle relaxer every 8 hours as needed for muscle spasms but remember, it WILL cause drowsiness You cannot take it and drive, operate machinery or care for small children. Warm soaks in tub may help with pain *Keep this area active, no movement leads to more stiffness, However take it easy and avoid heavy lifting pushing or pulling *Follow up with you family doctor if no improvement for further treatment Clinical Impressions Clinical Impression: Sciatica Instructions Patient Instructions: Sciatica, DI for Sciatica Discharge ED Provider: Marquita Kenyon [facility] General Stated complaint: Sciatic nerve pain Mode of Arrival: Ambulatory Source of Information: Patient Time Seen by Provider: 06/11/22 15:49 Description of Symptoms (Recalled from Triage Doc. by RN): nerve pain that is in left hip, knee, and ankle HEENT Symptoms (Recalled from RN notes): No Resp Symptoms (Recalled from RN notes): No Skin Symptoms (Recalled from RN notes): No MS Symptoms (Recalled from RN notes): Yes Functional Status (Recalled from RN notes): n/a History of Present Illness Provider Complaint: Patient states that she is having sciatic nerve pain States that she has been having pain in her left buttock area that is radiating into hip and down left leg States that it has continued to get worse over the last few days States that today it was still hurting her and when she would sit or lay on that side Related Data Home Medications Medication Instructions Recorded Confirmed duloxetine 60 mg capsule,delayed 60 mg PO DAILY chronic pain 06/11/22 06/11/22 release hydroxychloroquine 200 mg tablet 200 mg PO DAILY lupus 06/11/22 06/11/22 meloxicam 7.5 mg tablet 7.5 mg PO DAILY inflammation 06/11/22 06/11/22 Previous Rx's Medication Instructions Recorded methylprednisolone 4 mg tablets in See Rx Instructions .Route 06/11/22 a dose pack (Medrol (Indra)) .COMPLEX 6 days #21 tabs Allergies Allergy/AdvReac Type Severity Reaction Status Date / Time No Known Allergies Allergy Verified 06/11/22 15:16 Worker's Comp Is this a Worker's Comp case?: No [facility] Disclaimer: The information contained in this section may have been updated after the patient was seen, as this information can be updated by other users. Social History Smoking Status: Never smoker alcohol intake: never substance use type: denies use current occupational status: employed Travel in the last 8 weeks: None ROS Obtained: Yes All systems reviewed & no additional complaints except as documented and Yes Systems reviewed as appropriate & no additional complaints except as documented Constitutional Constitutional: Reports system reviewed and no additional complaints, except as documented and Reports as per HPI ENT Ears, Nose, Mouth, and Throat: Reports system revie
[2022-06-11 16:00] LABS: UTC Pregnancy Test, Urine Negative (Negative)
[2022-06-11 16:55] VITALS: BP 119/79; PULSE 78; RESP 18; TEMP 37; O2SAT 98
== END 2022-06-11 16:55 | disposition home or self-care (01) ==
PROVIDERS: Emergency Provider Nurse Practitioner; PCP Nurse Practitioner Family
DX: M54.31 Sciatica, right side (principal)
CPT/HCPCS: 81025; 99212; 99213; G0463

== ENCOUNTER 2023-01-16 10:57 | Emergency (ER) | payer BC, SELFPAY ==
[2023-01-16 10:58] VITALS: BP 109/73; PULSE 70; RESP 20; TEMP 36.7; O2SAT 99; BMI 16.2
--- NOTE | 2023-01-16 12:17 | EXP.UTC ---
Discharge Plan Disposition Patient Disposition: Home, Self-Care Condition: Good Prescriptions Prescriptions: No Action meloxicam 7.5 mg Tablet 7.5 mg PO DAILY hydroxychloroquine 200 mg Tablet 200 mg PO DAILY duloxetine 60 mg Capsule,Delayed Release(Dr/Ec) 60 mg PO DAILY methylprednisolone [Medrol (Indra)] 4 mg tablets,dose pack See Rx Instructions .Route .COMPLEX 6 Days Qty: 21 0RF Rx Instructions: taper pack; Referrals Follow up/Referrals: Gaby Kline MD [Primary Care Provider] - See instructions Activity Restrictions/Add. Instructions Additional Instructions/Restrictions: Suture instructions: ?You have required stitches today. Please read the following instructions so you know how to care for them: ?1. Keep wound area dry for the first 24 hours. 2?? May clean gently with mild soap and water, after 48 hours to prevent crusting over suture knots. 3. You may shower if your provider gives permission but do not take a bath until the skin is healed.. 4. Never leave a wet dressing or Band-Aid on your stitches as this allows bacteria to reach the area and may cause infection. Band-aids can cause the wound to sweat and not recommended to wear for long periods of time Watch for signs of infection: ? Increasing redness, tenderness or warmth around the suture site ? Unusual swelling around the site ? Appearance of pus around each suture or any red streaks ? Fever If you develop any of the above signs or symptoms of infection, Follow up with Family Physician immediately 5. Suture removal in _7-10___days 6. Return to [facility] or follow up with family doctor for removal. This can be done by any medical provider dur?ing regular hours on Friday through Friday, by appointment. Clinical Impressions Clinical Impression: Laceration Instructions Patient Instructions: DI for Laceration Repair, DI for Laceration Repair -- Simple Discharge ED Provider: Marquita Kenyon [facility] [place] HPI General Stated complaint: [id number] right thumb lacaration Mode of Arrival: Ambulatory Source of Information: Patient Limitations: No Limitations Time Seen by Provider: 01/16/23 11:05 Description of Symptoms (Recalled from Triage Doc. by RN): Cut right thumb on a knife this am. HEENT Symptoms (Recalled from RN notes): No Resp Symptoms (Recalled from RN notes): No Skin Symptoms (Recalled from RN notes): Yes MS Symptoms (Recalled from RN notes): No Functional Status (Recalled from RN notes): wnl History of Present Illness Provider Complaint: Patient states that she was doing dishes earlier when she accidently cut her right thumb with a knife Related Data Home Medications Medication Instructions Recorded Confirmed duloxetine 60 mg capsule,delayed 60 mg PO DAILY chronic pain 06/11/22 06/11/22 release hydroxychloroquine 200 mg tablet 200 mg PO DAILY lupus 06/11/22 06/11/22 meloxicam 7.5 mg tablet 7.5 mg PO DAILY inflammation 06/11/22 06/11/22 Previous Rx's Medication Instructions Recorded methylprednisolone 4 mg tablets in See Rx Instructions .Route 06/11/22 a dose pack (Medrol (Indra)) .COMPLEX 6 days #21 tabs Allergies Allergy/AdvReac Type Severity Reaction Status Date / Time No Known Allergies Allergy Verified 06/11/22 15:16 Worker's Comp Is this a Worker's Comp case?: No [facility] Disclaimer: The information contained in this section may have been updated after the patient was seen, as this information can be updated by other users. Social History Smoking Status: Never smoker alcohol intake: never substance use type: denies use current occupational status: employed Travel in the last 8 weeks: None ROS Obtained: Yes All systems reviewed & no additional complaints except as documented and Yes Systems reviewed as appropriate & no additional complaints except as documented Constitutional Constitutional: Reports system reviewed and no additional complaints, except as d
[2023-01-16 12:28] LABS: POC Glucose,Bedside 96 (70-110)
[2023-01-16 12:49] VITALS: BP 109/73; PULSE 70; RESP 20; TEMP 36.7; O2SAT 99
== END 2023-01-16 12:50 | disposition home or self-care (01) ==
PROVIDERS: Emergency Provider Nurse Practitioner; PCP Family Medicine
DX: S61.011A Laceration without foreign body of right thumb without damage to nail, initial encounter (principal); W26.0XXA Contact with knife, initial encounter
CPT/HCPCS: 12001; 82962; 99213; 99214; G0463

== ENCOUNTER 2023-04-26 16:34 | Emergency (ER) | payer BC, SELFPAY ==
[2023-04-26 16:45] VITALS: BP 121/73; PULSE 67; RESP 20; TEMP 36.9; O2SAT 98; BMI 17.9
[2023-04-26 16:54] LABS: Apearance,Urine Clear (Clear); Color,Urine Orange (Yellow)
[2023-04-26 16:55] LABS: Bilirubin,Urine 3+ (Negative); Blood, Urine 3+ (Negative); Glucose,Urine (UA) 250 (Negative); Ketones,Urine 15 (Negative); Protein,Urine 3+ (Negative); UTC Leukocyte Esterase,Urine 3+ (Negative); UTC Nitrate,Urine Positive (Negative); Urobilinogen,Urine >=8 EU/dl (0.2)
--- NOTE | 2023-04-26 16:57 | EXP.UTC ---
Discharge Plan Disposition Patient Disposition: Home, Self-Care Condition: Good Prescriptions Prescriptions: New nitrofurantoin monohyd/m-cryst [Macrobid] 100 mg Capsule 100 mg PO BID Qty: 10 0RF Rx Instructions: must administer with a meal/food phenazopyridine [Pyridium] 200 mg tablet 200 mg PO Q8H 2 Days Qty: 6 0RF ondansetron 4 mg Tablet,Disintegrating 4 mg PO Q8H PRN (Reason: Nausea) Qty: 12 0RF No Action meloxicam 7.5 mg Tablet 7.5 mg PO DAILY hydroxychloroquine 200 mg Tablet 200 mg PO DAILY duloxetine 60 mg Capsule,Delayed Release(Dr/Ec) 60 mg PO DAILY methylprednisolone [Medrol (Indra)] 4 mg tablets,dose pack See Rx Instructions .Route .COMPLEX 6 Days Qty: 21 0RF Rx Instructions: taper pack; Referrals Follow up/Referrals: Gaby Kline MD [Primary Care Provider] - See instructions Activity Restrictions/Add. Instructions Additional Instructions/Restrictions: Drink plenty of fluids. Take tylenol or ibuprofen for pain or fever. Take the medications as directed. Follow up with your regular doctor. GO TO THE ER FOR ANY WORSENING SYMPTOMS The pyridium will make your urine turn orange, this is an expected side effect. It will stain your clothes if it comes into contact with them. We will culture the urine. That will tell what bacteria is causing your infection and which antibiotics will treat it best. Sometimes the first antibiotic we prescribe turns out to not work against different bacteria. So, make sure you follow up within 3 days if you are not getting better. Clinical Impressions Clinical Impression: UTI (urinary tract infection) Stand Alone Forms Stand Alone Forms: Work/School Release Instructions Patient Instructions: Urinary Tract Infection, DI for Urinary Tract Infection (UTI) Discharge ED Provider: Paco Almeida [facility] General Stated complaint: poss UTI Time Seen by Provider: 04/26/23 16:57 History of Present Illness Provider Complaint: She states that for the past 2 days she has had low back pain, dysuria and urinary frequency. Related Data Home Medications Medication Instructions Recorded Confirmed duloxetine 60 mg capsule,delayed 60 mg PO DAILY chronic pain 06/11/22 06/11/22 release hydroxychloroquine 200 mg tablet 200 mg PO DAILY lupus 06/11/22 06/11/22 meloxicam 7.5 mg tablet 7.5 mg PO DAILY inflammation 06/11/22 06/11/22 Previous Rx's Medication Instructions Recorded methylprednisolone 4 mg tablets in See Rx Instructions .Route 06/11/22 a dose pack (Medrol (Indra)) .COMPLEX 6 days #21 tabs nitrofurantoin 100 mg PO BID #10 caps 04/26/23 monohydrate/macrocrystals 100 mg capsule (Macrobid) ondansetron 4 mg disintegrating 4 mg PO Q8H PRN Nausea #12 tabs 04/26/23 tablet phenazopyridine 200 mg tablet 200 mg PO Q8H 2 days #6 tabs 04/26/23 (Pyridium) Allergies Allergy/AdvReac Type Severity Reaction Status Date / Time No Known Allergies Allergy Verified 06/11/22 15:16 [facility] Disclaimer: The information contained in this section may have been updated after the patient was seen, as this information can be updated by other users. Social History Smoking Status: Never smoker alcohol intake: never substance use type: denies use current occupational status: employed Travel in the last 8 weeks: None ROS Obtained: Yes All systems reviewed & no additional complaints except as documented Constitutional Constitutional: Reports system reviewed and no additional complaints, except as documented, Denies chills and Denies fever(s) Eyes Eyes: Denies eye discharge ENT Ears, Nose, Mouth, and Throat: Denies dysphagia, Denies sore throat and Denies throat swelling Cardiovascular Cardiovascular: Denies chest pain and Denies dyspnea Respiratory Respiratory: Denies chest congestion, Denies cough and Denies dyspnea Gastrointestinal Gastrointestingal: Denies abdominal pain, constipation
[2023-04-26 17:00] VITALS: BP 121/73; PULSE 67; RESP 20; TEMP 36.9; O2SAT 98
== END 2023-04-26 17:04 | disposition home or self-care (01) ==
PROVIDERS: Emergency Provider Nurse Practitioner Family; PCP Family Medicine
DX: N39.0 Urinary tract infection, site not specified (principal); B96.29 Other Escherichia coli [E. coli] as the cause of diseases classified elsewhere; M54.59 Other low back pain
CPT/HCPCS: 81003; 87086; 99212; 99214; G0463

== ENCOUNTER 2023-05-08 07:27 | Emergency (ER) | payer BC, SELFPAY ==
[2023-05-08] VITALS (7 sets, daily range): BP systolic 95–120; BP diastolic 56–77; PULSE 64–96; RESP 16–20; TEMP 36.7–36.8; O2SAT 97–100; BMI 18.0
--- NOTE | 2023-05-08 07:42 | HMH.EDGENADL ---
Discharge Plan Disposition Patient Disposition: Home, Self-Care Condition: Fair Prescriptions Prescriptions: No Action nitrofurantoin monohyd/m-cryst [Macrobid] 100 mg Capsule 100 mg PO BID Qty: 10 0RF Rx Instructions: must administer with a meal/food phenazopyridine [Pyridium] 200 mg tablet 200 mg PO Q8H 2 Days Qty: 6 0RF ondansetron 4 mg Tablet,Disintegrating 4 mg PO Q8H PRN (Reason: Nausea) Qty: 12 0RF meloxicam 7.5 mg Tablet 7.5 mg PO DAILY hydroxychloroquine 200 mg Tablet 200 mg PO DAILY duloxetine 60 mg Capsule,Delayed Release(Dr/Ec) 60 mg PO DAILY methylprednisolone [Medrol (Indra)] 4 mg tablets,dose pack See Rx Instructions .Route .COMPLEX 6 Days Qty: 21 0RF Rx Instructions: taper pack; Referrals Follow up/Referrals: Gaby Kline MD [Primary Care Provider] - See instructions Antonio Ruiz MD [Staff Physician] - See instructions Activity Restrictions/Add. Instructions Additional Instructions/Restrictions: You may follow-up with Dr. Knowles for an outpatient evaluation for possible endoscopy or with Dr. Lester in [place] for discussion for endoscopy as well regarding your epigastric discomfort. Return to the emergency part with any worsening symptoms no emergent medical condition identified today. Clinical Impressions Clinical Impression: Nausea & vomiting, Epigastric abdominal pain, Hypokalemia Stand Alone Forms Stand Alone Forms: Work/School Release Discharge ED Provider: Kylah Rodriguez General Adult HPI General Chief complaint: PAIN Stated complaint: abd pain, nausea, vomiting Time Seen by Provider: 05/08/23 07:33 History of Present Illness HPI narrative: Patient is a 22-year-old female with a history of lupus who presents today with epigastric abdominal pain and nausea and vomiting. States that this began yesterday evening but woke her up around 5 AM with associated abdominal cramping and nausea and vomiting. No diarrhea. No fevers or chills. She does have some radiation into her right upper quadrant but this has not been postprandial she does still have her gallbladder has not had a cholecystectomy. Also states she has a chronic urinary tract infection and will go away. 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 She has been taking Pyridium stating that I take this when it flares up. Related Data Home Medications Medication Instructions Recorded Confirmed duloxetine 60 mg capsule,delayed 60 mg PO DAILY chronic pain 06/11/22 06/11/22 release hydroxychloroquine 200 mg tablet 200 mg PO DAILY lupus 06/11/22 06/11/22 meloxicam 7.5 mg tablet 7.5 mg PO DAILY inflammation 06/11/22 06/11/22 Previous Rx's Medication Instructions Recorded methylprednisolone 4 mg tablets in See Rx Instructions .Route 06/11/22 a dose pack (Medrol (Indra)) .COMPLEX 6 days #21 tabs nitrofurantoin 100 mg PO BID #10 caps 04/26/23 monohydrate/macrocrystals 100 mg capsule (Macrobid) ondansetron 4 mg disintegrating 4 mg PO Q8H PRN Nausea #12 tabs 04/26/23 tablet phenazopyridine 200 mg tablet 200 mg PO Q8H 2 days #6 tabs 04/26/23 (Pyridium) Allergies Allergy/AdvReac Type Severity Reaction Status Date / Time No Known Allergies Allergy Verified 06/11/22 15:16 [facility] Disclaimer: The information contained in this section may have been updated after the patient was seen, as this information can be updated by other users. Social History Smoking Status: Never smoker alcohol intake: never substance use type: denies use current occupational status: employed Travel in the last 8 weeks: None ROS Obtained: Yes All systems reviewed & no additional complaints except as documented Physical Exam General General appearance: alert and in no apparent distress Respiratory Respiratory exam: Present normal lung sounds bila
[2023-05-08 08:15] LABS: Alanine Aminotransferase 26 U/L (12-78); Albumin Level 4.7 g/dl (3.5-5.0); Albumin/Globulin Ratio 1.6 (1.1-1.8); Alkaline Phosphatase 55 U/L (38-126); Aspartate Amino Transferase 29 U/L (14-36); Bilirubin,Total 0.7 mg/dl (0.2-1.3); Blood Urea Nitrogen 15 mg/dl (7-17); Calcium 8.4 mg/dl (8.4-10.2); Carbon Dioxide 26 mmol/L (22.0-30.0); Chloride 105 mmol/L (98-107); Creatinine Clearance Estimated 108 mL/min (50-200); Estimated Glomerular Filt Rate 103 ml/min (>60); GFR (African American) 124 ML/MIN (>60); Glucose 88 mg/dl (74-100); Lipase 27 U/L (23-300); Sodium 139 mmol/L (136-145); Total Protein,Serum 7.7 g/dl (6.3-8.2)
[2023-05-08 09:24] LABS: Urine Pregnancy, HCG Qual. Negative (Negative)
[2023-05-08 09:48] LABS: Basophils % 0.1 % (0.1-2.0); Eosinophils # 0.1 K/mm3 (0.0-0.4); Eosinophils % 0.4 % (0.1-12.0); Hematocrit 41.3 % (37.0-47.0); Hemoglobin 13.4 g/dL (12.2-16.2); Lymphocytes # 1.4 K/mm3 (0.7-4.5); Lymphocytes % 11.7 % (10-50); Mean Corpuscular HGB Conc 32.5 g/dL (31.8-35.4); Mean Corpuscular Hemoglobin 31.1 pg (27.0-31.2); Mean Corpuscular Volume 95.6 fl (81-99); Mean Platelet Volume 8.3 fl (7.4-10.4); Monocytes # 0.4 K/mm3 (0.1-1.0); Monocytes % 3.4 % (1.7-9.3); Neutrophils % 84.3 % (37.0-80.0); Platelet Count 385 K/mm3 (142-424); Red Blood Count 4.31 M/mm3 (4.20-5.40); Red Cell Distribution Width 13.1 % (11.5-17.5); White Blood Count 11.8 K/mm3 (4.8-10.8)
== END 2023-05-08 10:42 | disposition home or self-care (01) ==
PROVIDERS: Student in an Organized Health Care Education/Training Program; Emergency Provider Emergency Medicine; PCP Family Medicine
DX: R10.13 Epigastric pain (principal); E87.6 Hypokalemia; R11.2 Nausea with vomiting, unspecified; M32.9 Systemic lupus erythematosus, unspecified
CPT/HCPCS: 80053; 81025; 83690; 85025; 96365; 96366; 96375; 99284; J2405

== ENCOUNTER 2023-08-24 10:04 | Emergency (ER) | payer BC, SELFPAY ==
[2023-08-24 10:25] VITALS: BP 110/69; PULSE 87; RESP 20; TEMP 36.9; O2SAT 99; BMI 17.7
[2023-08-24 10:40] VITALS: BP 110/69; PULSE 87; RESP 20; TEMP 36.9; O2SAT 99
--- NOTE | 2023-08-24 10:40 | ED_ITS ---
Discharge Plan Disposition Patient Disposition: Home, Self-Care Condition: Good Prescriptions Prescriptions: New azithromycin [Zithromax Z-Indra] 250 mg tablet See Rx Instructions .ROUTE .COMPLEX 5 Days Qty: 6 0RF Rx Instructions: For 250 mg dose pack: take 500 mg today (day 1), then 250 mg for 4 days (days 2-5) methylprednisolone [Medrol (Indra)] 4 mg tablets,dose pack See Rx Instructions .Route .COMPLEX 6 Days Qty: 21 0RF Rx Instructions: taper pack; guaifenesin [Mucinex] 600 mg tablet extended release 12hr 600 mg PO BID PRN (Reason: cough) Qty: 20 0RF Referrals Follow up/Referrals: Gaby Kline MD [Primary Care Provider] - See instructions Activity Restrictions/Add. Instructions Additional Instructions/Restrictions: * Start antibiotic today. Be sure to complete entire prescription even if feeling better * Monitor temp. Tylenol every 4 hours as needed and / or ibuprofen every 6 hours as needed ( As long as your primary care physician has told you that it ok to take both. For fever/aches/pains ER if no less than 101 despite Tylenol or Motrin * Humidifier/vaporizer or hot steamy shower * Inhaler every 4-6 hours as needed like we discussed. If unsure how to use it, ask pharmacist to demonstrate how. Should help open airways and improve cough, wheezing, and shortness of breath * Mucinex for your cough Be sure to drink lots of water. *Start steroid today. Helps with inflammation therefore, cough and wheezing. Follow directions on the package. Reviewed side effects. Patient reports taking them before. Follow up IMMEDIATELY for new or worsening of symptoms OR no noticeable improvement over the next 48-72 hours. 911 immediately for any life threatening symptoms such as chest pain or difficulty breathing Clinical Impressions Clinical Impression: Bronchitis Sinusitis Qualifiers: Sinusitis location: unspecified location Chronicity: unspecified Qualified Code(s): J32.9 - Chronic sinusitis, unspecified Instructions Patient Instructions: Sinusitis, DI for Sinusitis Discharge ED Provider: Marquita Kenyon [facility] General Stated complaint: chest congestion, cough Mode of Arrival: Ambulatory Source of Information: Patient Limitations: No Limitations Time Seen by Provider: 08/24/23 10:40 Description of Symptoms (Recalled from Triage Doc. by RN): PATIENT C/O CHEST CONGESTION AND COUGH SINCE FRIDAY HEENT Symptoms (Recalled from RN notes): No Resp Symptoms (Recalled from RN notes): Yes Skin Symptoms (Recalled from RN notes): No MS Symptoms (Recalled from RN notes): No Functional Status (Recalled from RN notes): WNL History of Present Illness Provider Complaint: Patient states that she has been having cough, chest con gestion, scratchy throat and over all not feeling well since last Wed States that she isnt coughing anything up but feels like she has congestion in there so today she came in to get checked Related Data Previous Rx's Medication Instructions Recorded azithromycin 250 mg tablet See Rx Instructions PO .COMPLEX 5 08/24/23 (Zithromax Z-Indra) days #6 tabs guaifenesin 600 mg tablet, 600 mg PO BID PRN cough #20 tabs 08/24/23 extended release 12 hr (Mucinex) methylprednisolone 4 mg tablets in See Rx Instructions .Route 08/24/23 a dose pack (Medrol (Indra)) .COMPLEX 6 days #21 tabs Allergies Allergy/AdvReac Type Severity Reaction Status Date / Time No Known Allergies Allergy Verified 06/11/22 15:16 Worker's Comp Is this a Worker's Comp case?: No [facility] Disclaimer: The information contained in this section may have been updated after the patient was seen, as this information can be updated by other users. Social History Smoking Status: Never smoker alcohol intake: never substance use type: denies use current occupational status: employed Travel in the last 8 weeks: None ROS Obtained: Yes All systems reviewed & no additional complaints except as documented and Yes Systems reviewed as appropriate & no additional complaints except as documented Constitutional Constitutional: Reports system reviewed and no additional complaints, except as documented, Reports as per HPI, Denies fever(s) and Reports headache(s) ENT Ears, Nose, Mouth, and Throat: Reports system reviewed and no additional complaints, except as documented, Reports as per HPI, Reports headache(s), Reports sinus pain, Reports sinus pressure and Reports sore throat Cardiovascular Cardiovascular: Reports system reviewed and no additional complaints, except as documented and Reports as per HPI Respiratory Respiratory: Reports system reviewed and no additional complaints, except as documented, Reports as per HPI, Reports chest congestion and Reports cough Gastrointestinal Gastrointestingal: Reports system reviewed and no additional complaints, except as documented and as per HPI Neurologic Neurologic: Reports headache(s) Physical Exam General General appearance: alert and in no apparent distress ENT ENT exam: Present mucous membranes moist Expanded ENT Exam Nose exam: Present sinus tenderness Throat exam: Present other (Pharyngeal erythema noted with PND) Respiratory Respiratory exam: Present normal lung sounds bilaterally; Absent respiratory distress or wheezes Cardiovascular Cardiovascular exam: Present regular rate, normal rhythm and normal heart sounds Neurological Exam Neurological exam: Present alert, oriented X3 and normal gait Medical Decision Making Byron Inquiry Pt receiving controlled substance: No [place] was queried for this patient: No Vital Signs: 08/24/23 10:25 Temperature 98.5 F Temperature Source Oral Pulse Rate [Left Brachial] 87 Respiratory Rate 20 Blood Pressure [Left Arm] 110/69 Blood Pressure Mean [Left Arm] 82 Blood Pressure Source [Left Arm] Automatic Cuff Blood Pressure Position [Left Arm] Sitting 02 Sat by Pulse Oximetry 99 Oxygen Delivery Method Room Air Lab Data Lab results reviewed: Yes I reviewed the patient's lab results.
== END 2023-08-24 10:56 | disposition home or self-care (01) ==
PROVIDERS: Emergency Provider Nurse Practitioner; PCP Family Medicine
DX: J40 Bronchitis, not specified as acute or chronic (principal); J32.9 Chronic sinusitis, unspecified; R05.9 Cough, unspecified
CPT/HCPCS: 99212; 99214; G0463

== ENCOUNTER 2024-02-17 14:07 | Emergency (ER) | payer BC, SELFPAY ==
[2024-02-17 14:20] VITALS: BP 133/83; PULSE 107; RESP 20; TEMP 37.1; O2SAT 99; BMI 18.0
[2024-02-17 14:32] LABS: Coronavirus 19, PCR Not Detected (NotDetected); Influenza A, PCR Not Detected (NotDetected); Influenza B, PCR Not Detected (NotDetected)
--- NOTE | 2024-02-17 14:34 | EXP.UTC ---
Discharge Plan Disposition Patient Disposition: Home, Self-Care Condition: Good Prescriptions Prescriptions: No Action meloxicam 7.5 mg Tablet 7.5 mg PO DAILY omeprazole 20 mg capsule,delayed release(DR/EC) 20 mg PO DAILY hydroxychloroquine 200 mg tablet 200 mg PO DAILY duloxetine 30 mg capsule,delayed release(DR/EC) 30 mg PO DAILY Patient Comments: TAKE 1 CAPSULE BY MOUTH DAILY Referrals Follow up/Referrals: Kate Pascal APRN [Primary Care Provider] - See instructions Activity Restrictions/Add. Instructions Additional Instructions/Restrictions: *Monitor Temp, Over the counter Motrin or Tylenol as directed/as needed Tylenol every 4 hours and Motrin every 6 hours (as long as your family doctor has told you that you can take it) for fever or pain. and straight to ER if unable to lower temp less than 101.0 after medication given *Warm salt water gargles may help to soothe the throat *Throat Lozenges? *Warm fluids like tea with honey may help to soothe the throat? *Sleep elevated *Humidifier/Vaporizer Your throat swab was sent for culture. Those results are typically sent to your primary care. Be sure to follow up in 2-3 days with your family doctor/primary care physician if no improvement so they can review those result and treat if necessary. If you don?t have a primary care doctor, I recommend you get one but in the mean time, you will have to return to a walk in clinic Follow up IMMEDIATELY for new or worsening symptoms or no Noticeable improvement over the next 48-72 hours. 911 for difficulty breathing or swallowing You were tested for today for COVID19 your test result should be back in the next 24 ?hours, you may check your results on the [facility] My Health Clinical Impressions Clinical Impression: Viral syndrome Stand Alone Forms Stand Alone Forms: Work/School Release Instructions Patient Instructions: DI for Viral Syndrome, Sore Throat, [place] Print Language Print Language: Yakut Discharge ED Provider: Marquita Kenyon [facility] [place] General Stated complaint: sore throat soa congestion Mode of Arrival: Ambulatory Source of Information: Patient Limitations: No Limitations Time Seen by Provider: 02/17/24 14:34 Description of Symptoms (Recalled from Triage Doc. 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 States last night she started headache, sore throat, congestion and felt like she couldnt get a deep breath at times States today she was still having sore throat and felt drainage in her throat/chest area so she came in worried she may have COVID and wanting to get tested Related Data Home Medications ?Medication ?Instructions ?Recorded ?Confirmed duloxetine 30 mg capsule,delayed 30 mg PO DAILY 02/17/24 02/17/24 release hydroxychloroquine 200 mg tablet 200 mg PO DAILY 02/17/24 02/17/24 meloxicam 7.5 mg tablet 7.5 mg PO DAILY 02/17/24 02/17/24 omeprazole 20 mg capsule,delayed 20 mg PO DAILY 02/17/24 02/17/24 release Allergies Allergy/AdvReac Type Severity Reaction Status Date / Time No Known Allergies Allergy Verified 09/02/23 08:55 Worker's Comp Is this a Worker's Comp case?: No [facility] Disclaimer: The information contained in this section may have been updated after the patient was seen, as this information can be updated by other users. Medical History (Updated 02/17/24 @ 14:53 by Marquita Kenyon APRN) ADHD Raynauds disease CREST syndrome Scleroderma Primary biliary cirrhosis Ankylosing spondylitis Fibromyalgia Sjogrens syndrome Lupus Surgical History (Updated 09/02/23 @ 09:08 by Melissa Lay CMA) H/O right knee surgery History of tonsillectomy and adenoidectomy Family History (Updated 09/02/23 @ 09:09 by Melissa Lay CMA) Grandmother Hypertension Grandmother Cancer Father Melanoma Social History Smoking Status: Never smoker alcohol intake: never substance use type: denies use current occupational status: employed Travel in the last 8 weeks: None ROS Obtained: Yes All systems reviewed & no additional complaints except as documented and Yes Systems reviewed as appropriate & no additional complaints except as documented Constitutional Constitutional: Reports system reviewed and no additional complaints, except as documented, Reports as per HPI, Reports body ache, Reports chills, Reports fever(s) and Reports headache(s) ENT Ears, Nose, Mouth, and Throat: Reports system reviewed and no additional complaints, except as documented, Reports as per HPI, Reports headache(s), Reports nasal congestion and Reports sore throat Cardiovascular Cardiovascular: Reports system reviewed and no additional complaints, except as documented and Reports as per HPI Respiratory Respiratory: Reports system reviewed and no additional complaints, except as documented, Reports as per HPI and Reports shortness of breath (dry cough, feels like she has drainage into her chest) Neurologic Neurologic: Reports headache(s) Physical Exam General General appearance: alert and in no apparent distress ENT ENT exam: Present mucous membranes moist Expanded ENT Exam Nose exam: Absent sinus tenderness Throat exam: Present other (mild pharyngeal erythema noted) Respiratory Respiratory exam: Present normal lung sounds bilaterally; Absent respiratory distress or wheezes Cardiovascular Cardiovascular exam: Present regular rate, normal rhythm and normal heart sounds Neurological Exam Neurological exam: Present alert, oriented X3 and normal gait Medical Decision Making Byron Inquiry Pt receiving controlled substance: No Byron was queried for this patient: No Vital Signs: 02/17/24 14:20 Temperature 98.7 F Temperature Source Oral Pulse Rate [Left Brachial] 107 H Respiratory Rate 20 Blood Pressure [Left Arm] 133/83 Blood Pressure Mean [Left Arm] 99 Blood Pressure Source [Left Arm] Automatic Cuff Blood Pressure Position [Left Arm] Sitting 02 Sat by Pulse Oximetry 99 Oxygen Delivery Method Room Air Lab Data Lab results reviewed: Yes I reviewed the patient's lab results. Orders (Tests/Meds): ORDERS Category Date Time Status Rapid PCR Covid and Flu A/B Stat Lab 02/17/24 14:25 Received Medical Decision Narrative: Discussed CXR and patient declined states feels like it is the drainage in her throat causing her chest to feel congested nonproductive cough
[2024-02-17 14:56] VITALS: BP 133/83; PULSE 107; RESP 20; TEMP 37.1; O2SAT 99
[2024-02-17 14:57] LABS: UTC Strep Screen (Rapid) Negative (Negative)
== END 2024-02-17 15:03 | disposition home or self-care (01) ==
PROVIDERS: Emergency Provider Nurse Practitioner; PCP Nurse Practitioner Family
DX: R51.9 Headache, unspecified (principal); R07.0 Pain in throat; R09.81 Nasal congestion; B34.9 Viral infection, unspecified
CPT/HCPCS: 87636; 87880; 99212; 99213; G0463

== ENCOUNTER 2024-11-15 17:28 | Outpatient (CLI) | payer BC, SELFPAY ==
--- OUTSIDE RECORDS SUMMARY | 2024-11-16 13:54 | XMS_ITS | Clinical Summary ---
Author Organization [facility] Address [address] [place] [address] Care Team Providers Care Anesthesia Assistant Name Role Phone Kate Pascal CLIFTON Primary Care Provider [phone] Allergies Active Allergy Reactions Criticality Noted Date Comments Shellfish Allergy Angioedema High 03/20/2024 Medications * This document contains information received from the source organization and may not represent a complete record from that organization. EPINEPHrine (EpiPen 2-Indra) 0.3 MG/0.3ML injection syringe Inject 0.3 mL (0.3 mg) into the muscle 1 (one) time for 1 dose. Inject into upper leg. Call 911 after use. 1 each 1 05/06/2023 Active DULoxetine (Cymbalta) [address] capsule Take 1 capsule (30 mg) by mouth 1 (one) time each day. Do not crush or chew. 30 capsule 11 10/29/2023 Active hydroxychloroqu ine (Plaquenil) 200 MG tablet TAKE 1 TABLET(200 MG) BY MOUTH 1 TIME EACH DAY 30 tablet 1 05/20/2024 Active Active Problems Problem Noted Date Diagnosed Date Encounter for supervision of normal in third trimester 02/07/2021 Assessment & Plan (02/07/2021 11:04 AM EDT): S/p Tdap, flu shot today Elevated BP w/ nml recheck Continue PNV H/o x 2, anticipate OLGA RTC 2 weeks - GBS then Endometritis 11/20/2019 Overview (01/24/2021): Post 6 days following at 38 wks with pre-labor rupture of membranes. Vasovagal syndrome 06/25/2017 Vasovagal near-syncope 06/25/2017 Syncope, near 06/25/2017 Migraine 10/25/2014 Resolved Problems Problem Noted Date Diagnosed Date Resolved Date 08/17/2020 02/07/2021 Overview (11/28/2020): Dates by 8 6/7 wk u/s. MBT O positive Works as EMT; Immunizations Immunization Administration Dates Next Due Influenza, injectable, quadr ivalent, preservative free, pediatric 02/21/2021 Influenza, seasonal, injectable 05/12/2023,03/22 Moderna COVID-19 Vaccine (Stone Grader) 12+ years ,05/31/2020 Tdap 12/27/2020,08/29/2009 Varicella 08/10/2003 Family History Medical History Relation Name Comments Depression Brother Christopher Depression Father Carlos Melanoma Father Carlos Vision loss Maternal Grandmother Halle Cervical cancer Mother Abran Depression Mother Abran Rheum arthritis Mother Abran Hypertension Other 1 Breast cancer Other 2 Intellectual Disability Son Jan Relation Name Status Comments Brother Christopher Father Carlos Maternal Grandmother Halle Mother Abran Other 1 Other 2 Son Jan Social History Tobacco Use Types Packs/Day Years Used Date Smoking Tobacco: Never Smokeless Tobacco: Never Tobacco Cessation:Counseling Given: Not Answered Alcohol Use Standard Drinks/Week Comments Not Currently 0 (1 standard drink = 0.6 oz pure alcohol) Maybe one drink every 3-5 months PHQ-2 Answer Date Recorded Patient Health Questionnaire-2 Score 0 10/29/2023 [place] Depression Scale Answer Date Recorded [place] Depression Scale Total 0 04/04/2021 The thought of harming myself has occurred to me . Never 04/04/2021 Comments No Sex and Gender Information Value Date Recorded Sex Assigned at Not on file Legal Sex Female 8:31 PM EDT Gender Identity Not on file Sexual Orientation Not on file Last Filed Vital Signs Vital Sign Reading Time Taken Comments Blood Pressure 137/83 04/16/2024 4:40 AM EST Pulse 85 04/16/2024 4:40 AM EST Temperature 36.6 C (97.9 F) 04/16/2024 4:40 AM EST Respiratory Rate 18 04/16/2024 4:40 AM EST Oxygen Saturation 97% 04/16/2024 4:40 AM EST Inhaled Oxygen Concentration - - Weight 54.4 kg (120 lb) 03/20/2024 7:24 AM EDT Height 175.3 cm (5' 9 ) 03/20/2024 7:24 AM EDT Body Mass Index 17.72 03/20/2024 7:24 AM EDT Plan of Treatment Health Maintenance Due Date Last Done Comments Dental Oral Exam 1998 Dental Prophylaxis 1998 Dental X-Ray: Bitewings 1998 Dental X-Ray: Full Mouth 1998 [facility]-Infant/Child/Adol SDOH Screenings 1998 [facility]-Varicella Vaccines (2 of 2 - 2-dose childhood series) 11/02/2003 08/10/2003 HPV Vaccines (1 - 3-dose series) 2013 [facility]- SDOH Screenings 2016 [facility]-Adult SDOH Screenings 2016 [facility]-Hepatitis A Vaccines (1 of 2 - Risk 2-dose series) 2017 [facility]-Hepatitis B Vaccines (1 of 3 - 19+ 3-dose series) 2017 [facility]-Pneumococcal Vaccine: Pediatrics (0 to 5 Years) and At-Risk Patients (6 to 49 Years) (1 of 2 - PCV) 2017 [facility]-Pap Smear 2019 [id number] Vaccine (3 - season) 2024 06/30/2020, 05/31/2020 [facility]-Depression Screening 10/28/2024 10/29/2023, 03/10 [facility]-Influenza Vaccine (Season Ended) 2025 05/12/2023, 04/18/2023, 02/21/2021, Additional history exists [facility]-DTaP,Tdap,and Td Vaccines (3 - Td or Tdap) 12/27/2030 12/27/2020, 08/29/2009 [facility]-Zoster Vaccines (1 of 2) 2048 08/10/2003 [facility]-HIV Screening Completed 10/04/2020 [facility]-Hepatitis C Screening Completed 10/04/2020 [facility]-HIB Vaccines Aged Out No longer e ligible based on patient's age to complete this topic [facility]-IPV Vaccines Aged Out No longer e ligible based on patient's age to complete this topic [facility]-Rotavirus Vaccines Aged Out No lo nger eligible based on patient's age to complete this topic Procedures Procedure Name Priority Date/Time Associated Diagnosis Comments HEPATITIS C ANTIBODY W/REFLEX TO HCV QUANT PCR Routine 10/04/2020 HIV 1/2 ANTIBODY/ANTIGEN SCREEN WITH REFLEX TO HIV I/II DIFFERENTIATION Routine 10/04/2020 from Last 3 Months or Most Recently Relevant to Health Maintenance Results * HIV 1 & 2 Antibody/Antigen Screen (10/04/2020) External HIV 1/2 Ab/Ag Negative Blood Venous blood specimen / Unknown Historical Provider MD LAB BLOOD ORDERABLES Katy l Result * Hepatitis C Antibody (10/04/2020) External Hepatitis C Antibody (HCV Ab) Negative Blood Venous blood specimen / Unknown [facility] Provider MD LAB BLOOD ORDERABLES Katy l Result from Last 3 Months or Most Recently Relevant to Health Maintenance Insurance [facility] [address] [id number] [place] [address] [employer] Care Teams Anesthesia Assistant Relationship Specialty Start Date End Date Kate Pascal APRN [address] [place] [address] PCP - General 10/08/23
== END 2024-11-15 23:59 | disposition home or self-care (01) ==
LOC: LAB.DROPOF 11-16 13:50
PROVIDERS: PCP Student in an Organized Health Care Education/Training Program; Visit Provider Student in an Organized Health Care Education/Training Program
DX: N39.0 Urinary tract infection, site not specified (principal)
CPT/HCPCS: 87086

== ENCOUNTER 2024-12-09 08:55 | Outpatient (CLI) | payer BC, SELFPAY ==
--- OUTSIDE RECORDS SUMMARY | 2024-12-13 11:11 | XMS_ITS | Clinical Summary ---
Author Organization [facility] Address [address] [place] [address] Care Team Providers Care Care Transitions Manager Name Role Phone Kate Pascal CLIFTON Primary Care Provider [phone]- [phone] Allergies Active Allergy Reactions Criticality Noted Date [...] Influenza, seasonal, injectable 05/12/2023,03/22 Moderna COVID-19 Vaccine (Padder Cushion) 12+ years ,05/31/2020 Tdap 12/27/2020,08/29/2009 Varicella 08/10/2003 [...] Recorded Patient Health Questionnaire-2 Score 0 10/29/2023 [place] Depression Scale Answer Date Recorded [place] Depression Scale Total 0 04/04/2021 The thought [...] Screenings 2016 [facility]-Adult SDOH Screenings 2016 [facility]-Hepatitis B Vaccines (1 of 3 - 19+ 3-dose series) 2017 [facility]-Pap Smear 2019 [id number] Vaccine (3 - 2023- season) 2024 06/30/2020, 05/31/2020 [facility]-Depression Screening 10/28/2024 10/29/2023, 03/10 [facility]-Influenza Vaccine (#1) 02/07/202505/12, 04/18/2023, 02/21/2021, Additional history exists [facility]-DTaP,Tdap,and Td Vaccines (3 - Td or Tdap) 12/27/2030 12/27/2020, 08/29/2009 [facility]-Zoster Vaccines (1 of 2) 2048 08/10/2003 [facility]-HIV Screening Completed 10/04/2020 [facility]-Hepatitis C Screening Completed 10/04/2020 [facility]-HIB Vaccines Aged Out No longer e ligible based on patient's age to complete this topic [facility]-Hepatitis A Vaccines Aged Out No longer eligible based on patient's age to complete this topic [facility]-IPV Vaccines Aged Out No longer e ligible based on patient's age to complete this topic [facility]-Pneumococcal Vaccine: Pediatrics (0 to 5 Years) and At-Risk Patients (6 to 49 Years) Aged Out No longer eligible based on patient's age to complete [...] Negative Blood Venous blood specimen / Unknown [facility] Provider LAB BLOOD ORDERABLES Katy l Result * Hepatitis C Antibody (10/04/2020) External Hepatitis C Antibody (HCV Ab) Negative Blood Venous blood specimen / Unknown [facility] Provider LAB BLOOD ORDERABLES Katy l Result from Last 3 Months or Most Recently Relevant to Health Maintenance Insurance [facility] [id number] [place] [id number] LIEN Care Teams Care Transitions Manager Relationship Specialty Start Date End Date Kate Pascal APRN [address] [place] [address] PCP - General 10/08/23
== END 2024-12-09 23:59 | disposition home or self-care (01) ==
LOC: LAB.DROPOF 12-13 10:46
PROVIDERS: PCP Student in an Organized Health Care Education/Training Program; Visit Provider Student in an Organized Health Care Education/Training Program
DX: N39.0 Urinary tract infection, site not specified (principal)
CPT/HCPCS: 87086; 87088; 87186

== ENCOUNTER 2025-01-24 11:04 | Emergency (ER) | payer BC, SELFPAY ==
[2025-01-24 11:13] VITALS: BP 128/89; PULSE 101; RESP 20; TEMP 36.7; O2SAT 98; BMI 16.2
--- NOTE | 2025-01-24 11:18 | ED_ITS ---
<Statement entered by Hesham Gray DO - 01/25/25 07:18> I was consulted by the BONNY, and we discussed the complexity of problems being addressed. I approved the treatment and management plan for this patient's care in the emergency department, thus performing a substantive portion of the medical decision making. Patient presented with right upper quadrant as well as left flank pain. Denied urinary symptoms. We proceeded with a CT scan of the abdomen pelvis which demonstrated a physiologic collapsed left ovarian cyst. I do not feel that this is explaining her pain. Her urine does show leukocyte Estrace and 5-10 white blood cells with blood. However, she is not actively having symptoms we will not treat at this time. Stable culture her urine and call her with results if it grows greater than 100,000 colony-forming units. Pain was improved while in the emergency department. Could be due to constipation found on CT. We have given instructions for bowel regimen and asked her to follow-up with her primary care. Return precautions given. Hesham Gray DO Discharge Plan Disposition Patient Disposition: Home, Self-Care Prescriptions Prescriptions: New polyethylene glycol 3350 [Miralax] 17 gram/dose powder 17 g PO DAILY 7 Days Qty: 119 0RF No Action methylphenidate HCl [Concerta] 18 mg tablet extended release 24hr 18 mg PO DAILY Qty: 30 0RF trazodone 50 mg tablet 50 mg PO DAILY Qty: 30 2RF aripiprazole [Abilify] 5 mg tablet 5 mg PO HS Qty: 30 2RF Referrals Follow up/Referrals: Mayelin Shaw DO [Staff Physician, BPM ANALYST] - See instructions Kate Pascal APRN [Primary Care Provider, Medical] - See instructions Activity Restrictions/Add. Instructions Additional Instructions/Restrictions: Today you were evaluated in the emergency department and diagnosed with constipation and a left ovarian cyst. Please use the MiraLAX as directed for constipation. Please call Dr. Shaw's office to make a follow-up gynecology appointment for reevaluation of your cyst. Please increase your fluid intake. You may take acetaminophen and ibuprofen [id number] for symptomatic relief. Please return to the ED for any worsening of your condition. Clinical Impressions Clinical Impression: Cyst of left ovary, Constipation Instructions Patient Instructions: Ovarian Cyst, Constipation Print Language Print Language: Serbian Discharge ED Provider: Hesham Gray General Adult HPI General Chief complaint: Abdominal Pain Stated complaint: abdomen and flank pain Time Seen by Provider: 01/24/25 11:11 Mode of Arrival: Ambulatory Source of Information: Patient Description of Symptoms (Recalled from ER Triage Doc. by RN): Patient presents to ED with abd pain that is located to her upper right quad that is radiating to her back. Patient denies any urinary symptoms. Patient took Tylenol this morning around 0700. Patient is rating pain 8/10. History of Present Illness HPI narrative: patient is a 24-year-old female PMHx lupus (follows with [facility]) & anxiety who presents to the ED for complaints of right upper quadrant and left flank pain for 2 days. Patient was evaluated at [facility] yesterday who advised her she had bilirubin in her urine sample and to come to the ED. She states she is nauseous however no vomiting. Related Data Previous Rx's ?Medication ?Instructions ?Recorded trazodone 50 mg tablet 50 mg PO DAILY #30 tabs / 0 methylphenidate HCl 18 mg 18 mg PO DAILY #30 tabs 12/08 08/03 tablet,extended release 24 hr (Concerta) aripiprazole 5 mg tablet (Abilify) 5 mg PO HS #30 tabs 01/18/25 polyethylene glycol 3350 17 17 g PO DAILY 7 days #119 grams 01/24/25 gram/dose oral powder (Miralax) Allergies Allergy/AdvReac Type Severity Reaction Status Date / Time No Known Allergies Allergy Verified 01/24/25 10:30 [facility] Disclaimer: The information contained in this section may have been updated after the patient was seen, as this information can be updated by other users. Medical History ADHD Raynauds disease CREST syndrome Scleroderma Primary biliary cirrhosis Ankylosing spondylitis Fibromyalgia Sjogrens syndrome Lupus Surgical History H/O right knee surgery History of tonsillectomy and adenoidectomy Family History Grandmother Hypertension Grandmother Cancer breast cancer Father Melanoma Social History Smoking Status: Never smoker alcohol intake: never substance use type: denies use current occupational status: employed Travel in the last 8 weeks?: None Have you lived/traveled outside US in past 30 days?: No Contact w/someone who lives/traveled outside US past 30 days?: No Exposure to someone with infectious disease in past 14 days?: No Do you have a fever (greater than 100.4 F or 38 C)?: No Have you tested positive for COVID-19?: No Exposed to someone with COVID-19 in past 14 days?: No Do you have a sore throat?: No Do you have a cough?: No Do you have any weakness?: No Do you have any diarrhea?: No Are you experiencing any unusual bleeding?: No Do you have any muscle aches/pain?: No Do you have any abdominal pain?: Yes Are you experiencing loss of taste or smell?: No Other Medical History Have you received the Flu Vaccine for this season: Yes Have you received the Pneumonia Vaccine: No ROS Obtained: Yes Systems reviewed as appropriate & no additional complaints except as documented Physical Exam General General appearance: alert Head Head exam: atraumatic Eye Eye exam: Present PERRL Respiratory Respiratory exam: Present normal lung sounds bilaterally Cardiovascular Cardiovascular exam: Present regular rate Abdominal Exam Abdominal exam: Present soft; Absent tenderness, Torres's sign or Rovsing's sign Extremities Exam Extremities exam: Present full ROM Back Exam Back exam: Present normal inspection and full ROM; Absent CVA tenderness (R) or CVA tenderness (L) Neurological Exam Neurological exam: Present alert and oriented X3 Skin Skin exam: Present warm and dry Medical Decision Making Medical Records Screening: Per USPSTF and CDC recommendations, given the prevalence of disease in our region, it is our hospital?s policy to screen for HIV and viral Hepatitis for all patients aged 18 and over and those with ongoing risk factors. [place] Inquiry Pt receiving controlled substance: No Vital Signs: 01/24/25 11:13 01/24/25 12:47 Temperature 98.0 F 98.3 F Temperature Source Oral Pulse Rate 76 Pulse Rate [Right Brachial] 101 H Respiratory Rate 20 16 Blood Pressure 92/59 L Blood Pressure [Right Arm] 128/89 Blood Pressure Mean [Right Arm] 102 Blood Pressure Source [Right Arm] Automatic Cuff Blood Pressure Position [Right Arm] Sitting 02 Sat by Pulse Oximetry 98 Oxygen Delivery Method Room Air Lab Data Lab Results 01/24/25 11:10: Urine Color Yellow, Urine Appearance Cloudy, Urine pH 5.5, Ur Specific [place] 1.020, Urine Protein Negative, Urine Glucose (UA) Negative, Urine Ketones Trace, Urine Blood 2+ A, Urine Nitrate Negative, Urine Bilirubin Negative, Urine Urobilinogen 0.2, Ur Leukocyte Esterase Trace, Urine RBC 3-5, Urine WBC 5-10, Ur Squamous Epith Cells 5-10, Urine Bacteria 1+, Urine Mucus 2+, Urine HCG, Qual Negative 01/24/25 11:24: WBC 8.3, RBC 4.20, Hgb 12.8, Hct 37.8, MCV 90.0, MCH 30.5, MCHC 33.9, RDW 11.8, Plt Count 372, MPV 9.4, Neut % (Auto) 76.5, Lymph % (Auto) 15.9, Patrick % (Auto) 5.7, Eos % (Auto) 1.0, Baso % (Auto) 0.7, Neut # (Auto) 6.4, Lymph # (Auto) 1.3, Patrick # (Auto) 0.5, Eos # (Auto) 0.1, Baso # (Auto) 0.1, Sodium 135 L, Potassium 3.8, Chloride 103, Carbon Dioxide 25, Anion Gap 10.8, BUN 11, Creatinine 0.70, Estimated Creat Clear 96, Estimated GFR 101, Est GFR ( Amer) 122, Glucose 103 H, Calcium 9.2, Total Bilirubin 0.6, AST 28, ALT 24, Alkaline Phosphatase 85, Total Protein 7.8, Albumin 4.5, Globulin 3.3 H, Albumin/Globulin Ratio 1.4, Lipase 20 L, HCV Ab RK w/Rflx PCR Qn Negative, HIV Ag/Ab Combo Qual Negative 01/24/25 11:24 01/24/25 11:24 Orders (Tests/Meds): ED MEDICATIONS Discontinued Medications Generic Name Dose Route Start Last Admin Trade Name Freq PRN Reason Stop Dose Admin Sodium Chloride 1,000 mls @ 999 mls/hr 01/24/25 11:26 01/24/25 11:35 Sod Chlor 0.9% 1000ml Bag IV 01/24/25 12:26 999 mls/hr .Q1H1M ONE Administration Iopamidol 75 ml 01/24/25 11:45 01/24/25 11:46 Iopamidol-370 (76%);100ml Bottle IV 01/24/25 11:46 75 ml ONCE ONE Administration Morphine Sulfate 4 mg 01/24/25 11:26 01/24/25 11:36 Morphine 4mg/Ml Syringe IV 01/24/25 11:27 4 mg ONCE ONE Administration Ondansetron HCl 4 mg 01/24/25 11:26 01/24/25 11:36 Ondansetron 4mg/2ml Vial IV 01/24/25 11:27 4 mg ONCE ONE Administration Sodium Chloride 10 ml 01/24/25 11:45 01/24/25 11:46 Sodium Chloride 0.9% 10ml Syr (Rad Only) IV 01/24/25 11:46 10 ml ONCE ONE Administration ORDERS Category Date Time Status CT abdomen pelvis w con Stat Cat Scan 01/24/25 11:22 Completed CBC w/Auto Diff [Complete Blood Count Auto Diff] Stat Lab 01/24/25 11:24 Completed CMP [Comprehensive Metabolic Panel] Stat Lab 01/24/25 11:24 Completed HIV Combo Stat Lab 01/24/25 11:24 Completed Hepatitis C Ab Qual. W/ RFX Stat Lab 01/24/25 11:24 Completed Lipase Stat Lab 01/24/25 11:24 Completed Urinalysis and Microscopic Stat Lab 01/24/25 11:10 Completed Urine , HCG Qual. Stat Lab 01/24/25 11:10 Completed Urine Culture Stat Micro 01/24/25 11:10 Received Medical Decision Narrative: In summary, patient is a 24-year-old female PMHx lupus (follows with [facility]) & anxiety who presents to the ED for complaints of right upper quadrant and left flank pain for 2 days. Patient was evaluated at [facility] yesterday who advised her she had bilirubin in her urine sample and to come to the ED. She states she is nauseous however no vomiting. Has not had any previous abdominal surgeries. Denies any significant family history. Denies fever, chills, body aches, posterior neck pain, visual changes, headache, chest pain, shortness of breath, vomiting, dysuria, frequency, urgency. Upon initial evaluation patient is alert, oriented and cooperative. She is tachycardic, heart rate 111. Physical exam is remarkable for a soft abdomen, mild tenderness in the right upper quadrant. No CVA tenderness. Differential diagnosis include Labs reviewed. CBC unremarkable for any leukocytosis, stable H&H. CMP unremarkable for any actionable abnormalities. Lipase 20. Urinalysis remarkable for blood, trace leuk esterase, 1+ bacteria. hCG negative. CT remarkable for constipation and a left-sided ovarian cyst that measures 2 cm. Upon reassessment, patient's condition has improved. Her pain has improved. We discussed constipation and using MiraLAX. We discussed following up with gynecology for ovarian cyst. Advised patient to increase her fluid intake. We discussed very strict return precautions to the ED. Upon discharge, patient was hemodynamically stable. Critical Care Critical Care Time Critical Care Time: No
--- NOTE | 2025-01-24 11:22 | CT_ITS ---
FINAL REPORT TECHNIQUE: After the administration of intravenous contrast, axial images were obtained through the abdomen and pelvis by computed tomography. This study was performed with technique to keep radiation doses as low as reasonably achievable, (ALARA). Individualized dose reduction techniques using automated exposure control or adjustment of the MA and/or KV according to the patient's size were employed. CLINICAL HISTORY: RUQ R flank FINDINGS: Abdomen: The lung bases are clear. The liver is normal in size and attenuation. The gallbladder is present. The spleen is unremarkable. The adrenals are normal. The pancreas is unremarkable. The kidneys enhance appropriately. The aorta is normal in caliber. There is no free fluid or adenopathy. A large amount of stool is present. Pelvis: The appendix is not identified. Cecum is low-lying. There is an enhancing, lobular, collapsed cyst wall in the left ovary measuring 2 cm. This is best seen on image 87 of series 3. There is high-grade right neuroforaminal narrowing noted at L5-S1. The urinary bladder is unremarkable. There is no free fluid or adenopathy. IMPRESSION: Constipation. Partially collapsed left ovarian cyst, favor physiologic. Significant right L5-S1 neuroforaminal narrowing. Reviewed, Interpreted and Dictated by Wilberto Hernandez MD Transcribed by Gabbi Napoles Authenticated and [facility]
[2025-01-24 11:27] LABS: Microscopic, Urine URINE MICROSCOPIC (MICROSCOPIC)
[2025-01-24 11:32] LABS: Bilirubin,Urine Negative (Negative); Color,Urine YELLOW (Yellow); Glucose,Urine (UA) Negative (Negative); Ketones,Urine TRACE (Negative); Leukocyte Esterase,Urine TRACE (Negative); PH,Urine 5.5 (5.0-8.5); Protein,Urine Negative (Negative); Specific Gravity, Urine 1.020 (1.005-1.030); Urobilinogen,Urine 0.2 EU/dl (0.2)
--- OUTSIDE RECORDS SUMMARY | 2025-01-24 11:32 | XMS_ITS | Clinical Summary ---
Author Organization [facility] Address [address] [place] [address] Care Team Providers Care Twister In Name Role Phone Kate Pascal CLIFTON Primary Care Provider [phone] Allergies Active Allergy Reactions Criticality Noted Date [...] Influenza, seasonal, injectable 05/12/2023,03/22 Moderna COVID-19 Vaccine (Bearing Machine Operator) 12+ years ,05/31/2020 Tdap 12/27/2020,08/29/2009 Varicella 08/10/2003 [...] Recorded Patient Health Questionnaire-2 Score 0 10/29/2023 Cambridge Depression Scale Answer Date Recorded [place] Depression Scale Total 0 04/04/2021 The thought [...] 19+ 3-dose series) 2017 [facility]-Pap Smear 2019 [id number] Vaccine (3 - 2023- season) 2024 06/30/2020, [...] Negative Blood Venous blood specimen / [facility] LAB BLOOD ORDERABLES F inal Result * Hepatitis C Antibody (10/04/2020) External Hepatitis C Antibody (HCV Ab) Negative Blood Venous blood specimen / Unknown [facility] LAB BLOOD ORDERABLES F inal Result from Last 3 Months or Most Recently Relevant to Health Maintenance Insurance [id number] [place] [address] ANTHEM Care Teams Twister In Relationship Specialty Start Date End Date Kate Pascal APRN [address] [place] [address] PCP - General 10/08/23
[2025-01-24 11:35] LABS: Urine Pregnancy, HCG Qual. Negative (Negative)
[2025-01-24] MEDS: 0.9 % SODIUM CHLORIDE 1000ML 1,000 ML 999 ML IV (11:35)
[2025-01-24] MEDS: ONDANSETRON 4MG/2ML VIAL 4 MG IV (11:36)
[2025-01-24] MEDS: MORPHINE 4MG/ML SYRINGE 4 MG IV (11:36)
[2025-01-24 11:39] LABS: Albumin Level 4.5 g/dl (3.5-5.0); Chloride 103 mmol/L (98-107); Hematocrit 37.8 % (37.0-47.0); Hemoglobin 12.8 g/dL (12.2-16.2); Immature Granulocytes % 0.2 %; Mean Corpuscular HGB Conc 33.9 g/dL (31.8-35.4); Mean Corpuscular Hemoglobin 30.5 pg (27.0-31.2); Mean Corpuscular Volume 90.0 fl (81-99); Nucleated Red Blood Cells % 0 %; Platelet Count 372 K/mm3 (142-424); Red Blood Count 4.20 M/mm3 (4.20-5.40); Red Cell Distribution Width-SD 38.5 fL; Sodium 135 mmol/L (136-145); White Blood Count 8.3 K/mm3 (4.8-10.8)
[2025-01-24 11:40] LABS: Potassium 3.8 mmoL/L (3.5-5.1)
[2025-01-24 11:42] LABS: Alanine Aminotransferase 24 U/L (12-78); Albumin/Globulin Ratio 1.4 (1.1-1.8); Alkaline Phosphatase 85 U/L (38-126); Anion Gap 10.8 mEq/L (5-15); Aspartate Amino Transferase 28 U/L (14-36); Bilirubin,Total 0.6 mg/dl (0.2-1.3); Blood Urea Nitrogen 11 mg/dl (7-17); Carbon Dioxide 25 mmol/L (22.0-30.0); Creatinine Clearance Estimated 96 mL/min (50-200); Creatinine,Serum 0.70 mg/dl (0.52-1.04); Estimated Glomerular Filt Rate 101 ml/min (>60); GFR (African American) 122 ML/MIN (>60); Globulin 3.3 g/dL (1.3-3.2); Lipase 20 U/L (23-300); Total Protein,Serum 7.8 g/dl (6.3-8.2)
[2025-01-24 11:43] LABS: Calcium 9.2 mg/dl (8.4-10.2); Glucose 103 mg/dl (74-100)
[2025-01-24] MEDS: IOPAMIDOL-370 (76%);100ML BOTTLE 75 ML IV (11:46)
[2025-01-24] MEDS: SODIUM CHLORIDE 0.9% 10ML SYR (RAD ONLY) 10 ML IV (11:46)
[2025-01-24 11:48] LABS: Bacteria,Urine 1+ /lpf; Mucus,Urine 2+ /lpf
[2025-01-24 12:47] VITALS: BP 92/59; PULSE 76; RESP 16; TEMP 36.8; O2SAT 97
[2025-01-24 13:11] LABS: Hepatitis C Ab Qual. W/ RFX NEGATIVE (Negative)
--- NOTE | 2025-01-26 18:15 | PC.NURSE ---
Myself and attempted to call the pt about her culture results, it went straight to voicemail. Will attempt to make contact again.
== END 2025-01-24 12:52 | disposition home or self-care (01) ==
PROVIDERS: Nurse Practitioner; Emergency Provider Student in an Organized Health Care Education/Training Program; PCP Nurse Practitioner Family
DX: R10.11 Right upper quadrant pain (principal); R10.32 Left lower quadrant pain; M54.59 Other low back pain; N83.202 Unspecified ovarian cyst, left side; K59.00 Constipation, unspecified
CPT/HCPCS: 74177; 80053; 81001; 81025; 83690; 85025; 86803; 87086; 87088; 87186; 87389; 96361; 96374; 96375; 99284; J2270; J2405; J7030; Q9967

== ENCOUNTER 2025-03-18 09:53 | Outpatient (CLI) | payer BC, SELFPAY ==
--- OUTSIDE RECORDS SUMMARY | 2025-03-21 10:02 | XMS_ITS | Clinical Summary ---
Author Organization [facility] Address [address] [place] [address] Care Team Providers Care Dialer Name Role Phone Kate Pascal CLIFTON Primary Care Provider [phone]- [phone] Allergies Active Allergy Reactions Criticality Noted Date [...] 38 wks with pre-labor rupture of membranes. Migraine 10/25/2014 Resolved Problems Problem Noted Date Diagnosed Date Resolved Date 08/17/2020 02/07/2021 Overview (11/28/2020): Dates by 8 6/7 wk u/s. MBT O positive Works as EMT; Vasovagal syndrome 06/25/2017 Vasovagal near-syncope 06/25/201702/27 Syncope, near 06/25/2017 02/27/2025 Encounters * This document contains information received from the source organization and may not represent a complete record from that organization. Date Type Department Care Team Description 02/04/2025 Travel from Last 3 Months Immunizations Immunization Administration Dates Next Due Influenza, Unspecified 04/18/2023 Influenza, injectable, quadr ivalent, preservative free, pediatric 02/21/2021 Influenza, seasonal, injectable 05/12/2023,03/22 Moderna COVID-19 Vaccine (Practice Business Asst) 12+ years ,05/31/2020 Tdap 12/27/2020,08/29/2009 Varicella 08/10/2003 Family History Medical History Relation Name Comments Depression Brother Christopher Depression Father Carlos Melanoma Father Carlos Vision loss Maternal Grandmother Halle Cervical cancer Mother Maryjo Depression Mother Maryjo Rheum arthritis Mother Maryjo Hypertension Other 1 Breast cancer Other 2 Intellectual Disability Son Jan Relation Name Status Comments Brother Christopher Father Carlos Maternal Grandmother Halle Mother Maryjo Other 1 Other 2 Son Jan Social History Tobacco Use Types Packs/Day Years Used Date Smoking Tobacco: Never Smokeless Tobacco: Never Tobacco Cessation:Counseling Given: Not Answered Alcohol Use Standard Drinks/Week Comments Not Currently 0 (1 standard drink = 0.6 oz pure alcohol) Maybe one drink every 3-5 months PHQ-2 Answer Date Recorded Patient Health Questionnaire-2 Score 0 10/29/2023 Nemo Depression Scale Answer Date Recorded Nemo Depression Scale Total 0 04/04/2021 The thought [...] 19+ 3-dose series) 2017 [facility]-Pap Smear 2019 [facility]-Depression Screening 10/28/2024 10/29/2023, 03/10 [facility]I-HECLB-12 Vaccine (3 - 2024- season) 2025 06/30/2020, 05/31/2020 [facility]-Influenza Vaccine (#1) 02/07/202505/12, 04/18/2023, 02/21/2021, Additional [...] Procedure Name Priority Date/Time Associated Diagnosis Comments QUANTIFERON TB GOLD PLUS Routine 02/04/2025 10:09 AM EDT Encounter for screening for respiratory tuberculosis HEPATITIS C ANTIBODY W/REFLEX TO HCV QUANT PCR Routine 10/04/2020 HIV 1/2 ANTIBODY/ANTIGEN SCREEN WITH REFLEX TO HIV I/II DIFFERENTIATION Routine 10/04/2020 from Last 3 Months or Most Recently Relevant to Health Maintenance Results * Quantiferon TB Gold Plus (02/04/2025 10:09 AM EDT) Quantiferon TB Gold Plus Result Negative Negative 02/05/2025 5:05 PM EDT [facility] TB Nill Value 0.121 IU/mL 02/05/2025 5:05 PM EDT [facility] TB Antigen 1 -0.016 IU/mL 02/05/2025 5:05 PM EDT [facility] TB Antigen 2 -0.03 IU/mL 02/05/2025 5:05 PM EDT [facility] TB Mitogen 9.879 IU/mL 02/05/2025 5:05 PM EDT [facility] Blood Venous blood specimen / Unknown Venipuncture / Unknown 02/04/2025 10:09 AM EDT 02/04/2025 1:06 PM EDT Narrative [facility] - 02/05/2025 5:05 PM EDT Responses to the Mitogen positive control and occasionally to TB antigen can be above the assay range. For calculation purposes: IFN-gamma values > 10 IU/mL are handled as 10 IU/mL. us Jerica Spring MD LAB BLOOD ORDERABLES Final Re sult [facility] [address] [place] [address] * HIV 1 & 2 Antibody/Antigen Screen (10/04/2020) External HIV 1/2 Ab/Ag Negative Blood Venous blood specimen / Unknown Historical Provider LAB BLOOD ORDERABLES Final R esult * Hepatitis C Antibody (10/04/2020) External Hepatitis C Antibody (HCV Ab) Negative Blood Venous blood specimen / Unknown Historical Provider LAB BLOOD ORDERABLES Final R esult from Last 3 Months or Most Recently Relevant to Health Maintenance Insurance [facility] Care Teams Dialer Relationship Specialty Start Date End Date Kate Pascal APRN [address] [place] [address] PCP - General 10/08/23
--- OUTSIDE RECORDS SUMMARY | 2025-03-21 10:02 | XMS_ITS | Encounter Summary ---
Author Organization Healthcare Address [address] [place] [address] Care Team Providers Care Cabin Service Agent Name Role Phone Kate Pascal APRN Primary Care Provider [phone]- [phone] Encounter Details Date Type Department Care Team (Latest Contact Info) Description 02/04/2025 Travel Social History Tobacco Use Types Packs/Day Years Used Date Smoking Tobacco: Never Smokeless Tobacco: Never Alcohol Use Standard Drinks/Week Comments Not Currently 0 (1 standard drink = 0.6 oz pure alcohol) Maybe one drink every 3-5 months PHQ-2 Answer Date Recorded Patient Health Questionnaire-2 Score 0 10/29/2023 Dearborn Depression Scale Answer Date Recorded [place] Depression Scale Total 0 04/04/2021 The thought of harming myself has occurred to me . Never 04/04/2021 Comments No Sex and Gender Information Value Date Recorded Sex Assigned at Not on file Legal Sex Female 8:31 PM EDT Gender Identity Not on file Sexual Orientation Not on file documented as of this encounter Plan of Treatment Not on file documented as of this encounter Visit Diagnoses Not on filedocumented in this encounter Additional Health Concerns Assessment Noted Time A fall risk assessment has been complete d for the patient 10/29/2023 1:09 PM EDT A Body Mass Index follow-up plan has been documented for the patient 02/04/2025 10:10 AM EDT documented as of this encounter Care Teams Cabin Service Agent Relationship Specialty Start Date End Date Kate Pascal APRN [address] [place] [address] PCP - General 10/08/23 documented as of this encounter
== END 2025-03-18 23:59 ==
LOC: LAB.DROPOF 03-21 09:54
PROVIDERS: PCP Nurse Practitioner Family; Visit Provider Nurse Practitioner
DX: N39.0 Urinary tract infection, site not specified (principal)
CPT/HCPCS: 87086; 87088; 87186

== ENCOUNTER 2025-03-18 11:21 | Emergency (ER) | payer BC, SELFPAY ==
[2025-03-18 11:48] VITALS: BP 99/60; PULSE 70; RESP 18; TEMP 37; O2SAT 99; BMI 17.9
[2025-03-18 12:17] LABS: Microscopic, Urine URINE MICROSCOPIC (MICROSCOPIC)
[2025-03-18 12:30] LABS: Bilirubin,Urine Negative (Negative); Color,Urine YELLOW (Yellow); Glucose,Urine (UA) Negative (Negative); Ketones,Urine TRACE (Negative); Leukocyte Esterase,Urine 3+ (Negative); PH,Urine 5.5 (5.0-8.5); Protein,Urine 1+ (Negative); Specific Gravity, Urine 1.020 (1.005-1.030); Urobilinogen,Urine 1.0 EU/dl (0.2)
--- NOTE | 2025-03-18 12:44 | CT_ITS ---
FINAL REPORT TECHNIQUE: Thin section axial images were obtained through the abdomen after intravenous contrast. Reconstruction images were obtained from the axial data. Exam was performed using dose reduction techniques. CLINICAL HISTORY: Right flank pain, urinary symptoms COMPARISON: 01/24/2025 FINDINGS: The lung bases are clear. The liver is homogeneous. The gallbladder is present. The spleen, adrenal glands, and pancreas are unremarkable. There is no hydronephrosis or solid renal mass. Abdominal GI tract is without acute abnormality. There is no abdominal lymphadenopathy or ascites. There are nonspecific fluid-filled small bowel loops. There is a normal retrocecal appendix. Uterus and ovaries are normal. There is no pelvic lymphadenopathy or ascites. No acute osseous abnormalities identified. IMPRESSION: Nonspecific fluid-filled small bowel loops which can be seen with enteritis. Reviewed, Interpreted and Dictated by Jennyfer De Los Santos MD Transcribed by Carmen Zimmer Authenticated and . [facility]
[2025-03-18 12:45] LABS: Bacteria,Urine 3+ /lpf
--- NOTE | 2025-03-18 12:53 | ED_ITS ---
<Statement entered by Herberth Lima JR, DO - 03/18/25 16:21> I was consulted by the BONNY, and we discussed the complexity of problems being addressed. I approved the treatment and management plan for this patient's care in the emergency department, thus performing a substantial portion of the medical decision making. Herberth Lima DO Discharge Plan Disposition Patient Disposition: Home, Self-Care Condition: Good Prescriptions Prescriptions: New cefdinir 300 mg capsule 300 mg PO BID 10 Days Qty: 20 0RF ondansetron 4 mg tablet,disintegrating 4 mg PO Q6H PRN (Reason: nausea and vomiting) Qty: 10 0RF No Action methylphenidate HCl [Concerta] 18 mg tablet extended release 24hr 18 mg PO DAILY Qty: 30 0RF trazodone 50 mg tablet 50 mg PO DAILY Qty: 30 2RF aripiprazole [Abilify] 5 mg tablet 5 mg PO HS Qty: 30 2RF polyethylene glycol 3350 [Miralax] 17 gram/dose powder 17 g PO DAILY 7 Days Qty: 119 0RF Referrals Follow up/Referrals: Kate Pascal APRN [Primary Care Provider, Medical] - See instructions Activity Restrictions/Add. Instructions Additional Instructions/Restrictions: Please return to the emergency department any worsening signs or symptoms. Please follow with your PCP in the upcoming days/weeks. Please take antibiotic as prescribed, use antinausea medicine as needed. Clinical Impressions Clinical Impression: Nausea & vomiting, Acute UTI Instructions Patient Instructions: DI for Urinary Tract Infection (UTI), DI for Vomiting in Adults Print Language Print Language: Malay Discharge ED Provider: Herberth Lima JR General Adult HPI General Chief complaint: Urogenital-Female Stated complaint: UTI symptoms Time Seen by Provider: 03/18/25 12:44 Mode of Arrival: Ambulatory Source of Information: Patient Description of Symptoms (Recalled from ER Triage Doc. by RN): PT presents for evaluation of UTI sx, pt was sent from [facility]. Provider was concerned about pyleonephritis History of Present Illness HPI narrative: 24-year-old female presents the emergency department with bilateral flank pain, abdominal pain, nausea vomiting, dysuria for the last 3 to 4 days, patient was seen by urgent care treatment facility today, was instructed to come to the emergency department for further workup/evaluation. Patient admits to subjective fever chills, no recorded Tmax, no chest pain or shortness of breath, no diarrhea no constipation, no hematuria, no melena no hematochezia no hematemesis, has any vaginal bleeding vaginal discharge, no concern for any STIs, no new sexual contacts or risky sexual behaviors, patient endorses history of frequent UTIs, other past medical history is consistent with SLE, bipolar 1 disorder. Patient denies any alcohol tobacco or drug use, initial triage vitals are unremarkable. Please note that above description of symptoms, in this electronic medical record under categorization of recalled from ER triage doctor by RN are reflective of an initial nursing assessment, however, is not reflective of my full history and physical exam that was personally taken and clarified. Consequentially, this preceding description of symptoms, which may include the patient's categorized chief complaint in the EMR, do not reflect my personal clinical impression, and the ultimate description of history of present illness and patient stated complaints should be deferred to this section of the note. Unless stated otherwise or congruent with this section of the note, additional signs, symptoms, or incongruence should be interpreted as inaccurate with my clinical impression. Onset (ago): day(s) Related Data Previous Rx's ?Medication ?Instructions ?Recorded trazodone 50 mg tablet 50 mg PO DAILY #30 tabs 10/09 methylphenidate HCl 18 mg 18 mg PO DAILY #30 tabs 12/08 08/03 tablet,extended release 24 hr (Concerta) aripiprazole 5 mg tablet (Abilify) 5 mg PO HS #30 tabs 01/18/25 polyethylene glycol 3350 17 17 g PO DAILY 7 days #119 grams 01/24/25 gram/dose oral powder (Miralax) cefdinir 300 mg capsule 300 mg PO BID 10 days #20 ca ps 03/18/25 ondansetron 4 mg disintegrating 4 mg PO Q6H PRN nausea and 03/18/25 tablet vomiting #10 tabs Allergies Allergy/AdvReac Type Severity Reaction Status Date / Time No Known Allergies Allergy Verified 03/18/25 10:53 [facility] Disclaimer: The information contained in this section may have been updated after the patient was seen, as this information can be updated by other users. Medical History (Updated 03/18/25 @ 15:10 by CONSTANCE Rios) UTI (urinary tract infection) ADHD Raynauds disease CREST syndrome Scleroderma Primary biliary cirrhosis Ankylosing spondylitis Fibromyalgia Sjogrens syndrome Lupus Surgical History H/O right knee surgery History of tonsillectomy and adenoidectomy Family History Grandmother Hypertension Grandmother Cancer breast cancer Father Melanoma Social History Smoking Status: Current every day smoker alcohol intake: never substance use type: denies use current occupational status: employed Travel in the last 8 weeks?: None Have you lived/traveled outside US in past 30 days?: No Contact w/someone who lives/traveled outside US past 30 days?: No Exposure to someone with infectious disease in past 14 days?: No Do you have a fever (greater than 100.4 F or 38 C)?: No Have you tested positive for COVID-19?: No Exposed to someone with COVID-19 in past 14 days?: No Do you have a sore throat?: No Do you have a cough?: No Do you have any weakness?: No Do you have any diarrhea?: No Are you experiencing any unusual bleeding?: No Do you have any muscle aches/pain?: No Do you have any abdominal pain?: No Are you experiencing loss of taste or smell?: No Other Medical History Have you received the Flu Vaccine for this season: Yes Have you received the Pneumonia Vaccine: No ROS Obtained: Yes All systems reviewed & no additional complaints except as documented Physical Exam General General appearance: alert and in no apparent distress Head Head exam: atraumatic and normocephalic Eye Eye exam: Present PERRL and EOMI ENT ENT exam: Present mucous membranes moist Neck Neck exam: Present normal inspection Chest Chest inspection: Present normal inspection and symmetric chest wall rise Respiratory Respiratory exam: Present normal lung sounds bilaterally; Absent respiratory distress Cardiovascular Cardiovascular exam: Present regular rate and normal rhythm Abdominal Exam Abdominal exam: Present soft and tenderness; Absent guarding or rebound Abdominal tenderness: Present suprapubic and mild Extremities Exam Extremities exam: Present normal inspection Back Exam Back exam: Present CVA tenderness (R) and CVA tenderness (L) Neurological Exam Neurological exam: Present alert and oriented X3 Psychiatric Psychiatric exam: Present normal affect Skin Skin exam: Present warm and dry Medical Decision Making Medical Records Medical records reviewed: Yes I reviewed the patient's medical records. Screening: Per USPSTF and CDC recommendations, given the prevalence of disease in our region, it is our hospital?s policy to screen for HIV and viral Hepatitis for all patients aged 18 and over and those with ongoing risk factors. Byron Inquiry Pt receiving controlled substance: No Byron was queried for this patient: No Vital Signs: 03/18/25 11:48 Temperature 98.6 F Temperature Source Temporal Artery Scan Pulse Rate [Right] 70 Respiratory Rate 18 Blood Pressure [Right Arm] 99/60 L Blood Pressure Mean [Right Arm] 73 Blood Pressure Source [Right Arm] Automatic Cuff Blood Pressure Position [Right Arm] Sitting 02 Sat by Pulse Oximetry 99 Lab Data Lab results reviewed: Yes I reviewed the patient's lab results. Lab Results 03/18/25 11:58: Urine Color Yellow, Urine Appearance Clear, Urine pH 5.5, Ur Specific Frederick 1.020, Urine Protein 1+ A, Urine Glucose (UA) Negative, Urine Ketones Trace, Urine Blood 1+ A, Urine Nitrate Positive A, Urine Bilirubin Negative, Urine Urobilinogen 1.0, Ur Leukocyte Esterase 3+ A, Urine RBC 3-5, Urine WBC 10-20, Ur Squamous Epith Cells 3-5, Urine Bacteria 3+, Urine HCG, Qual Negative 03/18/25 12:49: WBC 8.2, RBC 3.79 L, Hgb 11.5 L, Hct 34.7 L, MCV 91.6, MCH 30.3, MCHC 33.1, RDW 12.4, Plt Count 391, MPV 9.2, Neut % (Auto) 57.5, Lymph % (Auto) 33.8, Grant % (Auto) 6.1, Eos % (Auto) 1.6, Baso % (Auto) 0.6, Neut # (Auto) 4.7, Lymph # (Auto) 2.8, Grant # (Auto) 0.5, Eos # (Auto) 0.1, Baso # (Auto) 0.1, Sodium 139, Potassium 3.9, Chloride 103, Carbon Dioxide 26, Anion Gap 13.9, BUN 16, Creatinine 0.80, Estimated Creat Clear 92, Estimated GFR 87, Est GFR ( Amer) 105, Glucose 95, Lactate 0.6 L, Calcium 9.1, Total Bilirubin 0.7, AST 36, ALT 27, Alkaline Phosphatase 86, Total Protein 7.2, Albumin 4.4, Globulin 2.8, Albumin/Globulin Ratio 1.6, Lipase 20 L 03/18/25 12:49 03/18/25 12:49 Orders (Tests/Meds): ED MEDICATIONS Generic Name Dose Route Start Last Admin Trade Name Freq PRN Reason Stop Dose Admin Sodium Chloride 10 ml 03/18/25 13:31 03/18/25 13:31 Sodium Chloride 0.9% 10ml Syr (Rad Only) IV 04/17/25 13:30 10 ml NEEDED PRN Administration Maintain IV Site Discontinued Medications Generic Name Dose Route Start Last Admin Trade Name Freq PRN Reason Stop Dose Admin Ceftriaxone Sodium 1 gm/ 50 mls @ 100 mls/hr 03/18/25 12:59 03/18/25 13:47 Sodium Chloride IV 03/18/25 13:28 Infused ONCE ONE Infusion Iopamidol 75 ml 03/18/25 13:31 03/18/25 13:31 Iopamidol-370 (76%);100ml Bottle IV 03/18/25 13:32 75 ml ONCE ONE Administration Ketorolac Tromethamine 15 mg 03/18/25 13:02 03/18/25 13:18 Ketorolac 15mg/Ml Vial IV 03/18/25 13:03 15 mg ONCE ONE Administration Ondansetron HCl 4 mg 03/18/25 13:01 03/18/25 13:18 Ondansetron 4mg/2ml Vial IV 03/18/25 13:02 4 mg ONCE ONE Administration Ondansetron HCl 4 mg 03/18/25 14:57 03/18/25 15:06 Ondansetron 4mg/2ml Vial IV 03/18/25 14:58 4 mg ONCE ONE Administration ORDERS Category Date Time Status CT abdomen pelvis w con Stat Cat Scan 03/18/25 12:44 Completed Complete Blood Count Auto Diff Stat Lab 03/18/25 12:49 Completed Comprehensive Metabolic Panel Stat Lab 03/18/25 12:49 Completed Lactic Acid Stat Lab 03/18/25 12:49 Completed Lipase Stat Lab 03/18/25 12:49 Completed Urinalysis and Microscopic Stat Lab 03/18/25 11:58 Completed Urine , HCG Qual. Stat Lab 03/18/25 11:58 Completed Urine Culture Stat Micro 03/18/25 11:58 Received Medical Decision Narrative: 24-year-old female presents the emergency department with urinary tract type symptomatology, bilateral flank pain, nausea vomiting for 3 to 4 days, differential diagnose clued but not limited to, acute UTI, colitis, ileitis, pain, appendicitis, diverticulitis, nephrolithiasis, ureterolithiasis, acute pyelonephritis among others. I discussed this patient's case with the attending physician Dr. Lima Will obtain basic laboratory studies, lactic acid, lipase level, urine hCG, UA, CT and pelvis with contrast, will give 4 mL of IV Zofran for nausea, will give 15 mg IV Toradol for pain UA is notable for 1+ proteinuria, 1+ hematuria, positive nitrites, 3+ leukocyte esterase, 35 RBCs, 10-20 WBCs, 35 squames with leukocytes and 3+ bacteria. will give 1 g IV ceftriaxone for UTI. CBC unremarkable CMP unremarkable hCG qualitative negative I reviewed the patient's CT abdomen pelvis with contrast along the corresponding radiologic report, nonspecific fluid-filled small bowel loops which can be seen in the setting enteritis. I discussed the results with the patient the bedside, will attempt p.o. intake with solids and fluids, and will give additional dose 4 mg IV Zofran. Patient tolerated p.o. intake, patient could be discharged home to self-care, discussed all results with the patient the bedside. Most likely cystitis versus pyelonephritis, will treat the patient with cefdinir 300 mg p.o. twice daily for 10 days. Patient voiced understanding and agreement with current treatment plan/discharge plan. Strict return precautions given. Will give 4 mg p.o. Zofran for nausea. Critical Care Critical Care Time Critical Care Time: No
[2025-03-18 13:01] LABS: Hematocrit 34.7 % (37.0-47.0); Hemoglobin 11.5 g/dL (12.2-16.2); Immature Granulocytes % 0.4 %; Mean Corpuscular HGB Conc 33.1 g/dL (31.8-35.4); Mean Corpuscular Hemoglobin 30.3 pg (27.0-31.2); Mean Corpuscular Volume 91.6 fl (81-99); Nucleated Red Blood Cells % 0 %; Platelet Count 391 K/mm3 (142-424); Red Blood Count 3.79 M/mm3 (4.20-5.40); Red Cell Distribution Width-SD 41.3 fL; White Blood Count 8.2 K/mm3 (4.8-10.8)
[2025-03-18 13:01] LABS: Urine Pregnancy, HCG Qual. Negative (Negative)
[2025-03-18 13:14] LABS: Alanine Aminotransferase 27 U/L (12-78); Albumin Level 4.4 g/dl (3.5-5.0); Albumin/Globulin Ratio 1.6 (1.1-1.8); Alkaline Phosphatase 86 U/L (38-126); Anion Gap 13.9 mEq/L (5-15); Aspartate Amino Transferase 36 U/L (14-36); Bilirubin,Total 0.7 mg/dl (0.2-1.3); Blood Urea Nitrogen 16 mg/dl (7-17); Calcium 9.1 mg/dl (8.4-10.2); Carbon Dioxide 26 mmol/L (22.0-30.0); Chloride 103 mmol/L (98-107); Creatinine Clearance Estimated 92 mL/min (50-200); Creatinine,Serum 0.80 mg/dl (0.52-1.04); Estimated Glomerular Filt Rate 87 ml/min (>60); GFR (African American) 105 ML/MIN (>60); Globulin 2.8 g/dL (1.3-3.2); Glucose 95 mg/dl (74-100); Lipase 20 U/L (23-300); Potassium 3.9 mmoL/L (3.5-5.1); Sodium 139 mmol/L (136-145); Total Protein,Serum 7.2 g/dl (6.3-8.2)
[2025-03-18] MEDS: ONDANSETRON 4MG/2ML VIAL 4 MG IV ×2 (13:18→15:06)
[2025-03-18] MEDS: KETOROLAC 15MG/ML VIAL 15 MG IV (13:18)
[2025-03-18] MEDS: IOPAMIDOL-370 (76%);100ML BOTTLE 75 ML IV (13:31)
[2025-03-18] MEDS: SODIUM CHLORIDE 0.9% 10ML SYR (RAD ONLY) 10 ML IV (13:31)
[2025-03-18 15:22] VITALS: BP 166/68; PULSE 94; RESP 18; TEMP 36.5; O2SAT 98
--- NOTE | 2025-03-19 09:27 | PC.NURSE ---
prelim urine culture discussed with . No change needed to pts treatment.
--- NOTE | 2025-03-21 17:45 | PC.NURSE ---
Final urine culture discussed with . No change needed to treatment.
== END 2025-03-18 15:28 | disposition home or self-care (01) ==
PROVIDERS: Physician Assistant; Emergency Provider Student in an Organized Health Care Education/Training Program; PCP Nurse Practitioner Family
DX: N39.0 Urinary tract infection, site not specified (principal); R10.30 Lower abdominal pain, unspecified; R11.2 Nausea with vomiting, unspecified; R30.0 Dysuria; F17.210 Nicotine dependence, cigarettes, uncomplicated
CPT/HCPCS: 74177; 80053; 81001; 81025; 83605; 83690; 85025; 87086; 87088; 87186; 96365; 96375; 96376; 99284; J0696; J1885; J2405; Q9967